=== PATIENT | male | born 1940 | race Caucasian/White ===

== ENCOUNTER → 2016-06-18 | Outpatient (CLI) | payer MEDICARE, BC ==
[~2016-06-18] MED LIST: ALEVE 220MG220 MG PO; ASPIRIN 81M81 MG/TA2 PO; CALCIUM/MAGNESI1 TA8 PO; CIPRO 250MG TA250 MG PO; COZAAR 50MG50 MG/TAB PO; FLAGYL 250250 MG/TAB PO; FLOMAX 0.40.4 MG/CAP PO; MAG-OX 400400 MG/TAB PO; MEDROL 4MG DOSPA4 MG PO; MULTI VITAMINS1 TAB PO; OMEGA-31 SGL PO; PRAVACHOL 40MG40 MG PO; SINGULAIR 110 MG/TAB PO; WELLBUTRIN SR100 M1 PO; ZONEGRAN 100MG100 MG PO; ZYRTEC ALLERGY10 MG PO; [UNRECOGNIZED DRUG - OTHER] PO; [UNRECOGNIZED DRUG - OTHER] PO; [UNRECOGNIZED DRUG - OTHER] PO; [UNRECOGNIZED DRUG - OTHER] PO
== END ==
LOC: MHCPAIN 09:23
DX: G89.29 Other chronic pain (principal); M50.90 Cervical disc disorder, unspecified, unspecified cervical region; M79.2 Neuralgia and neuritis, unspecified
CPT/HCPCS: G0463

== ENCOUNTER → 2016-06-24 | Outpatient (CLI) | payer MEDICARE, BC | LOC: MHCPAIN 07:40 | DX: G89.29 Other chronic pain (principal); M50.90 Cervical disc disorder, unspecified, unspecified cervical region; M79.2 Neuralgia and neuritis, unspecified ==

== ENCOUNTER → 2016-07-01 | Outpatient (CLI) | payer MEDICARE, BC | LOC: MHCPAIN 13:30 | DX: M50.30 Other cervical disc degeneration, unspecified cervical region (principal) ==

== ENCOUNTER → 2016-07-20 | Outpatient (CLI) | payer MEDICARE, BC | LOC: MHCPAIN 09:50 | DX: G89.29 Other chronic pain (principal); M50.90 Cervical disc disorder, unspecified, unspecified cervical region | CPT/HCPCS: G0463 ==

== ENCOUNTER → 2016-08-05 | Outpatient (CLI) | payer MEDICARE, BC | LOC: MHCPAIN 10:02 | DX: M50.30 Other cervical disc degeneration, unspecified cervical region (principal) | CPT/HCPCS: J1100 ==

== ENCOUNTER → 2016-08-09 | Outpatient (CLI) | payer MEDICARE, BC | LOC: MHCPAIN 10:10 | DX: G89.29 Other chronic pain (principal); M46.92 Unspecified inflammatory spondylopathy, cervical region | CPT/HCPCS: G0463 ==

== ENCOUNTER → 2016-08-12 | Outpatient (CLI) | payer MEDICARE, BC | LOC: MHCPAIN 11:05 | DX: M50.30 Other cervical disc degeneration, unspecified cervical region (principal) | CPT/HCPCS: J1100 ==

== ENCOUNTER 2016-08-27 11:47 | Day surgery (SDC) | payer MEDICARE, BC ==
[~2016-08-27] VITALS: Ht 175.3 cm; Wt 136.1 kg
[~2016-08-27 11:47] MED LIST changes: -CALCIUM/MAGNESI1 TA8 PO; -OMEGA-31 SGL PO; -SINGULAIR 110 MG/TAB PO; -WELLBUTRIN SR100 M1 PO; -ZONEGRAN 100MG100 MG PO; -ZYRTEC ALLERGY10 MG PO; -[UNRECOGNIZED DRUG - OTHER] PO; -[UNRECOGNIZED DRUG - OTHER] PO; -[UNRECOGNIZED DRUG - OTHER] PO
[2016-08-27 13:07] VITALS: BP 145/81; PULSE 81; TEMP 97.7
[2016-08-27] MEDS ORDERED: ZYRTEC ALLERGY10 MG PO (13:20)
[2016-08-27] MEDS ORDERED: SINGULAIR 110 MG/TAB PO (13:21)
[2016-08-27] MEDS ORDERED: FLOMAX 0.40.4 MG/CAP PO (13:21)
[2016-08-27 13:50] VITALS: BP 115/70; PULSE 78
[2016-08-27 14:05] VITALS: BP 122/60; PULSE 75
[2016-08-27 14:20] VITALS: BP 128/74; PULSE 78
[2016-08-27 14:35] VITALS: BP 125/67; PULSE 75
[2016-08-27 14:50] VITALS: BP 129/68; PULSE 80
== END 2016-08-27 15:30 | disposition home or self-care (01) ==
LOC: SDCO 11:47
DX: R06.00 Dyspnea, unspecified (principal); R05 Cough; Z87.891 Personal history of nicotine dependence
CPT/HCPCS: J0456; J2704; J2920; J7050; J7120

== ENCOUNTER → 2016-09-10 | Outpatient (CLI) | payer MEDICARE, BC ==
[~2016-09-10] MED LIST changes: +CALCIUM/MAGNESI1 TA8 PO; +OMEGA-31 SGL PO; +SINGULAIR 110 MG/TAB PO; +WELLBUTRIN SR100 M1 PO; +ZONEGRAN 100MG100 MG PO; +ZYRTEC ALLERGY10 MG PO; +[UNRECOGNIZED DRUG - OTHER] PO; +[UNRECOGNIZED DRUG - OTHER] PO; +[UNRECOGNIZED DRUG - OTHER] PO
== END ==
LOC: MHCPAIN 09:44
DX: G89.29 Other chronic pain (principal); M46.92 Unspecified inflammatory spondylopathy, cervical region
CPT/HCPCS: G0463

== ENCOUNTER 2016-12-29 11:20 | Emergency (ER) | payer MEDICARE, OTHER ==
[~2016-12-29] VITALS: Ht 172.7 cm; Wt 121.4 kg
[~2016-12-29 11:20] MED LIST changes: -CALCIUM/MAGNESI1 TA8 PO; -OMEGA-31 SGL PO; -WELLBUTRIN SR100 M1 PO; -ZONEGRAN 100MG100 MG PO; -[UNRECOGNIZED DRUG - OTHER] PO; -[UNRECOGNIZED DRUG - OTHER] PO; -[UNRECOGNIZED DRUG - OTHER] PO
[2016-12-29 11:25] VITALS: TEMP 97.1
[2016-12-29 11:59] LABS: ADJUSTED CALCIUM 9.3 mg/dL (8.4-10.2); ALANINE AMINOTRANSFERASE 22 U/L (21-72); ALBUMIN 3.7 gm/dL (3.5-5.0); ALKALINE PHOSPHATASE 88 U/L (50-136); ANION GAP 13 mmol/L (7-16); BASO # 0.1 (0.0-0.2); BASO % 0.8 % (0.0-2.0); BILIRUBIN,TOTAL 0.7 mg/dL (0.0-1.0); BLOOD UREA NITROGEN 18 mg/dL (9-20); CALCIUM 9.1 mg/dL (8.4-10.2); CARBON DIOXIDE 22 mmol/L (22-30); CHLORIDE 104 mmol/L (98-107); CREATININE, serum 0.74 mg/dL (0.66-1.25); EOS # 0.4 (0.0-0.7); EOS % 5.1 % (0-4.0); GLUCOSE 99 mg/dL (74-106); GRAN # 4.9 (1.4-6.5); GRAN % 65.6 % (42.2-75.2); LIPASE 32 U/L (23-300); LYMPH # 1.7 (1.2-3.4); LYMPH % 22.5 % (20.0-51.0); MEAN CELL VOLUME 88 fl (80.0-100.0); MEAN CORPUSCULAR HGB CONC 33 g/dl (33.0-37.0); MEAN PLATELET VOLUME 9.6 fl (7.4-10.4); MONO # 0.4 (0.1-0.6); MONO % 5.9 % (1.7-9.3); PLATELET COUNT 272 K/mm3 (130-400); POTASSIUM 4.3 mmol/L (3.4-5.0); RED BLOOD COUNT 3.85 M/mm3 (4.20-5.60); REDCELL DISTRIBUTION WIDTH-CV 14.1 % (11.5-14.5); SODIUM 139 mmol/L (137-145); WHITE BLOOD COUNT 7.5 K/mm3 (4.8-10.8)
[2016-12-29 12:02] LABS: HEMOGLOBIN 11.3 g/dl (13.5-18.0); MEAN CORPUSCULAR HEMOGLOBIN 29 pg (27.0-31.0)
[2016-12-29 12:11] LABS: B-TYPE NATRIURETIC PEPTIDE 194 pg/mL (0-125); TROPONIN-I < 0.012 ng/mL (0.000-0.034)
[2016-12-29] MEDS ORDERED: ZONEGRAN 100MG100 MG PO (12:31)
[2016-12-29] MEDS ORDERED: WELLBUTRIN SR100 M1 PO (12:32)
[2016-12-29] MEDS ORDERED: [UNRECOGNIZED DRUG - OTHER] PO (12:38)
[2016-12-29] MEDS ORDERED: CALCIUM/MAGNESI1 TA8 PO (13:08)
[2016-12-29] MEDS ORDERED: OMEGA-31 SGL PO (13:09)
[2016-12-29] MEDS ORDERED: [UNRECOGNIZED DRUG - OTHER] PO (13:10)
[2016-12-29] MEDS ORDERED: [UNRECOGNIZED DRUG - OTHER] PO (13:11)
[2016-12-29 14:45] VITALS: BP 108/56; PULSE 74
== END 2016-12-29 15:02 | disposition home or self-care (01) ==
LOC: COL.ER 11:20
PROVIDERS: Emergency Medicine
DX: R07.9 Chest pain, unspecified (principal); I10 Essential (primary) hypertension; E78.5 Hyperlipidemia, unspecified; Z85.3 Personal history of malignant neoplasm of breast; N40.0 Benign prostatic hyperplasia without lower urinary tract symptoms; Z98.890 Other specified postprocedural states; Z87.891 Personal history of nicotine dependence
CPT/HCPCS: J1885

== ENCOUNTER → 2017-08-19 | Outpatient (CLI) | payer MEDICARE ==
[~2017-08-19] MED LIST changes: +CALCIUM/MAGNESI1 TA8 PO; +OMEGA-31 SGL PO; +WELLBUTRIN SR100 M1 PO; +ZONEGRAN 100MG100 MG PO; +[UNRECOGNIZED DRUG - OTHER] PO; +[UNRECOGNIZED DRUG - OTHER] PO; +[UNRECOGNIZED DRUG - OTHER] PO
== END ==
LOC: COL.LAB 09:41
DX: Z01.89 Encounter for other specified special examinations (principal)

== ENCOUNTER → 2017-08-20 | Outpatient (CLI) | payer MEDICARE | LOC: ZCOL.LAB 09:05 | DX: R05 Cough (principal) ==

== ENCOUNTER → 2018-02-21 | Outpatient (CLI) | payer MEDICARE ==
[~2018-02-21] MED LIST changes: +ASPIRIN E.C. 8181 MG PO; +FERROUS SU325 MG/TAB PO; +FLONASEALLERGY NS; +FOLIC ACID0.4 MG PO; +KLONOPIN 0.5MG0.5 MG PO; +VITAMIN D31000 I1 PO; +VITAMINC500CH PO
== END ==
LOC: COL.LAB 11:51
DX: Z01.812 Encounter for preprocedural laboratory examination (principal)

== ENCOUNTER → 2018-03-17 | Outpatient (REF) ==
[~2018-03-17] MED LIST changes: +ASPI325T6 PO; +CEPHALEXIN500 M1 PO; +CHROMIUM PICOLI1 TA8 PO; +CIPRO 500MG TA500 MG PO; +CO Q-1010 M1 PO; +CORDARONE200 MG/TAB PO; +ELIQUIS 5MG PO; +FOSAMAX 70MG TA70 MG PO; +MASON NATURAL1200 MG PO; +MULTIPLE VITAMI1 CAP PO; +NORCO 325 MG-7.1 TAB PO; +PRAVACHOL 20MG20 MG PO; +ROXICODONE 55 MG/TAB PO; +SENOKOT S 50 MG1 TAB PO
[2018-03-17 14:33] LABS: BASO % 0.4 % (0.0-2.0); EOS # 0.1 (0.0-0.7); EOS % 1.7 % (0-4.0); GRAN # 5.1 (1.4-6.5); GRAN % 73.3 % (42.2-75.2); LYMPH # 1.2 (1.2-3.4); MEAN CELL VOLUME 91 fl (80.0-100.0); MEAN CORPUSCULAR HGB CONC 33 g/dl (33.0-37.0); MEAN PLATELET VOLUME 9.1 fl (7.4-10.4); MONO # 0.5 (0.1-0.6); MONO % 7.2 % (1.7-9.3); PLATELET COUNT 373 K/mm3 (130-400); RED BLOOD COUNT 3.21 M/mm3 (4.20-5.60); REDCELL DISTRIBUTION WIDTH-CV 14.4 % (11.5-14.5)
[2018-03-17 14:37] LABS: HEMATOCRIT 29.3 % (42.0-52.0); HEMOGLOBIN 9.6 g/dl (13.5-18.0); MEAN CORPUSCULAR HEMOGLOBIN 30 pg (27.0-31.0)
[2018-03-17 14:38] LABS: BILIRUBIN,TOTAL 0.4 mg/dL (0.0-1.0); CALCIUM 9.5 mg/dL (8.4-10.2); CREATININE, serum 0.91 mg/dL (0.66-1.25); POTASSIUM 4.2 mmol/L (3.4-5.0)
[2018-03-17 17:54] LABS: COLLECTION METHOD CLEAN CATCH
[2018-03-17 18:11] LABS: MUCOUS Present /lpf; PH 6 (5-8); SQUAMOUS EPITHELIAL 0-2 /hpf; URINE APPEARANCE Clear; URINE BACTERIA None Seen /hpf; URINE BILIRUBIN Negative (NEGATIVE); URINE BLOOD Negative (NEGATIVE); URINE CALCIUM OXALATE CRYSTAL Present /hpf; URINE COLOR Yellow; URINE GLUCOSE Negative (NEGATIVE); URINE KETONE Negative (NEGATIVE); URINE LEUKOCYTE ESTERASE Negative (NEGATIVE); URINE NITRATE Negative (NEGATIVE); URINE PROTEIN(semi-quant) Negative (NEGATIVE); URINE RBC 0-2 /hpf; URINE UROBILINOGEN Negative (NEGATIVE)
[2018-03-21 00:05] LABS: IEPS TP 5.1 g/dL (6.0-7.6)
== END ==
LOC: ZCOL.LAB 14:21
PROVIDERS: Family Medicine
DX: Z01.89 Encounter for other specified special examinations (principal)

== ENCOUNTER → 2018-03-30 | Outpatient (CLI) | payer MEDICARE ==
[~2018-03-30] VITALS: Ht 175.3 cm; Wt 109.1 kg
[2018-03-30] VITALS (10 sets, daily range): BP systolic 113–145; BP diastolic 37–76; PULSE 74–80
[~2018-03-30] MED LIST changes: +LOVENOX 3030 MG/0.3 SQ; +PERCOCET 325 MG1 TAB PO; +TYLENOL 325MG325 MG PO; +ZYRTEC 10MG10 MG PO
== END ==
LOC: COL.RAD 08:35
DX: M89.9 Disorder of bone, unspecified (principal); Z85.3 Personal history of malignant neoplasm of breast
CPT/HCPCS: 32109

== ENCOUNTER 2018-04-05 19:11 | Observation (INO) | payer MEDICARE ==
[~2018-04-05] VITALS: Ht 172.7 cm; Wt 110.2 kg
[~2018-04-05 19:11] MED LIST changes: +LOVENOX 100100 MG/ML SQ; -LOVENOX 3030 MG/0.3 SQ
[2018-04-05 20:44] LABS: BASO # 0.1 (0.0-0.2); BASO % 0.7 % (0.0-2.0); EOS # 0.5 (0.0-0.7); EOS % 7.2 % (0-4.0); GRAN # 4.6 (1.4-6.5); GRAN % 66.2 % (42.2-75.2); HEMOGLOBIN 10.1 g/dl (13.5-18.0); LYMPH # 1.2 (1.2-3.4); LYMPH % 17.7 % (20.0-51.0); MEAN CELL VOLUME 93 fl (80.0-100.0); MEAN CORPUSCULAR HEMOGLOBIN 30 pg (27.0-31.0); MEAN CORPUSCULAR HGB CONC 33 g/dl (33.0-37.0); MEAN PLATELET VOLUME 9.1 fl (7.4-10.4); MONO # 0.5 (0.1-0.6); MONO % 7.5 % (1.7-9.3); PLATELET COUNT 312 K/mm3 (130-400); RED BLOOD COUNT 3.33 M/mm3 (4.20-5.60); REDCELL DISTRIBUTION WIDTH-CV 15.2 % (11.5-14.5)
[2018-04-05 20:46] LABS: HEMATOCRIT 31.1 % (42.0-52.0)
[2018-04-05 20:54] LABS: ALBUMIN 2.9 gm/dL (3.5-5.0); BILIRUBIN,TOTAL 0.4 mg/dL (0.0-1.0); CALCIUM 12.4 mg/dL (8.4-10.2); CREATININE, serum 0.78 mg/dL (0.66-1.25); POTASSIUM 3.6 mmol/L (3.4-5.0); TOTAL PROTEIN 5.8 gm/dL (6.4-8.2)
[2018-04-05 21:01] LABS: INR 1.2 (0.8-3.0); PROTHROMBIN TIME 13.9 SECONDS (9.7-12.8)
[2018-04-05 21:24] LABS: THYROID STIMULATING HORMONE 2.41 uIU/mL (0.465-4.680)
[2018-04-05 23:26] LABS: COLLECTION METHOD CLEAN CATCH
[2018-04-05 23:33] LABS: PH 6 (5-8); SQUAMOUS EPITHELIAL 0-2 /hpf; URINE APPEARANCE Clear; URINE BACTERIA None Seen /hpf; URINE BILIRUBIN Negative (NEGATIVE); URINE BLOOD Negative (NEGATIVE); URINE COLOR Straw; URINE GLUCOSE Negative (NEGATIVE); URINE KETONE Negative (NEGATIVE); URINE LEUKOCYTE ESTERASE Negative (NEGATIVE); URINE NITRATE Negative (NEGATIVE); URINE PROTEIN(semi-quant) Negative (NEGATIVE); URINE RBC 0-2 /hpf; URINE UROBILINOGEN Negative (NEGATIVE)
[2018-04-06 00:28] VITALS: BP 145/60; PULSE 80; TEMP 99.2
[2018-04-06] MEDS ORDERED: DULCOLAX S10 MG/SUPP RC (01:33)
[2018-04-06] MEDS ORDERED: LASIX 20MG TABL20 MG PO (01:40)
[2018-04-06] MEDS ORDERED: SENNA-LAX8.6 MG PO (01:42)
[2018-04-06 02:05] LABS: CALCIUM 11.8 mg/dL (8.4-10.2); CREATININE, serum 0.81 mg/dL (0.66-1.25); MAGNESIUM 1.6 mg/dL (1.6-2.3); PHOSPHOROUS 3.3 mg/dL (2.5-4.5); POTASSIUM 3.3 mmol/L (3.4-5.0)
[2018-04-06] MEDS ORDERED: CORDARONE200 MG/TAB PO (02:05)
[2018-04-06 03:48] VITALS: BP 103/41; PULSE 75; TEMP 98.3
[2018-04-06 06:31] LABS: BASO % 0.3 % (0.0-2.0); EOS # 0.4 (0.0-0.7); EOS % 5.9 % (0-4.0); GRAN # 4.2 (1.4-6.5); GRAN % 67.5 % (42.2-75.2); LYMPH # 1.1 (1.2-3.4); LYMPH % 17.7 % (20.0-51.0); MEAN CELL VOLUME 93 fl (80.0-100.0); MEAN CORPUSCULAR HEMOGLOBIN 30 pg (27.0-31.0); MEAN CORPUSCULAR HGB CONC 33 g/dl (33.0-37.0); MEAN PLATELET VOLUME 10.3 fl (7.4-10.4); MONO # 0.5 (0.1-0.6); MONO % 7.8 % (1.7-9.3); PLATELET COUNT 342 K/mm3 (130-400); REDCELL DISTRIBUTION WIDTH-CV 15.2 % (11.5-14.5)
[2018-04-06 06:40] LABS: HEMATOCRIT 30.7 % (42.0-52.0)
[2018-04-06 06:50] LABS: CALCIUM 11.6 mg/dL (8.4-10.2); CREATININE, serum 0.79 mg/dL (0.66-1.25); POTASSIUM 3.4 mmol/L (3.4-5.0)
[2018-04-06 08:17] VITALS: BP 113/51; PULSE 78; TEMP 97.8
[2018-04-06 12:16] VITALS: BP 125/43; PULSE 70; TEMP 97.9
[2018-04-06 13:18] LABS: PTH,INTACT 8.9 pg/mL (6.6-88.9)
[2018-04-06 16:25] VITALS: BP 107/44; PULSE 71; TEMP 97.7
[2018-04-06 20:06] VITALS: BP 102/41; PULSE 84; TEMP 98.3
[2018-04-07 00:31] VITALS: BP 116/36; PULSE 60; TEMP 97.8
[2018-04-07 04:45] VITALS: BP 96/40; PULSE 70; TEMP 98.2
[2018-04-07 06:22] LABS: BASO % 0.6 % (0.0-2.0); EOS # 0.4 (0.0-0.7); EOS % 5.5 % (0-4.0); GRAN # 4.4 (1.4-6.5); LYMPH # 1.2 (1.2-3.4); MEAN CELL VOLUME 93 fl (80.0-100.0); MEAN CORPUSCULAR HGB CONC 32 g/dl (33.0-37.0); MEAN PLATELET VOLUME 9.7 fl (7.4-10.4); MONO # 0.5 (0.1-0.6); MONO % 7.3 % (1.7-9.3); PLATELET COUNT 306 K/mm3 (130-400); RED BLOOD COUNT 3.17 M/mm3 (4.20-5.60); REDCELL DISTRIBUTION WIDTH-CV 15.1 % (11.5-14.5)
[2018-04-07 06:26] LABS: HEMATOCRIT 29.5 % (42.0-52.0); HEMOGLOBIN 9.5 g/dl (13.5-18.0); MEAN CORPUSCULAR HEMOGLOBIN 30 pg (27.0-31.0)
[2018-04-07 06:36] LABS: CALCIUM 9.7 mg/dL (8.4-10.2); CREATININE, serum 0.7 mg/dL (0.66-1.25); POTASSIUM 3.4 mmol/L (3.4-5.0)
[2018-04-07 07:39] VITALS: BP 121/53; PULSE 68; TEMP 98
[2018-04-07 11:18] VITALS: BP 108/51; PULSE 76; TEMP 97.8
== END 2018-04-07 15:30 ==
LOC: COL.ER 19:11 → MEDICAL 22:10
PROVIDERS: Emergency Medicine; Hospitalist; Nurse Practitioner Family
DX: E83.52 Hypercalcemia (principal); M79.662 Pain in left lower leg; M79.661 Pain in right lower leg; R60.0 Localized edema; E87.6 Hypokalemia; E83.42 Hypomagnesemia; B37.9 Candidiasis, unspecified; I10 Essential (primary) hypertension; E78.5 Hyperlipidemia, unspecified; I48.0 Paroxysmal atrial fibrillation; I48.92 Unspecified atrial flutter; Z79.01 Long term (current) use of anticoagulants; I42.9 Cardiomyopathy, unspecified; I25.10 Atherosclerotic heart disease of native coronary artery without angina pectoris; G47.33 Obstructive sleep apnea (adult) (pediatric); Z86.711 Personal history of pulmonary embolism; J84.10 Pulmonary fibrosis, unspecified; Z85.3 Personal history of malignant neoplasm of breast; E66.01 Morbid (severe) obesity due to excess calories; D35.00 Benign neoplasm of unspecified adrenal gland; N40.0 Benign prostatic hyperplasia without lower urinary tract symptoms; R53.1 Weakness; R53.81 Other malaise; M79.622 Pain in left upper arm; M84.422D Pathological fracture, left humerus, subsequent encounter for fracture with routine healing; Z79.899 Other long term (current) drug therapy; Z87.891 Personal history of nicotine dependence
CPT/HCPCS: G0378; G8978-GP; G8979-GP; G8987-GO; G8988-GO; J0630; J1940; J2430; J3475; J7030

== ENCOUNTER → 2018-04-13 | Outpatient (CLI) | payer MEDICARE ==
[~2018-04-13] VITALS: Ht 172.7 cm; Wt 109.1 kg
[~2018-04-13] MED LIST changes: +DULCOLAX S10 MG/SUPP RC; +LASIX 20MG TABL20 MG PO; +SENNA-LAX8.6 MG PO
[2018-04-13 13:15] VITALS: BP 95/58; PULSE 104
[2018-04-13 15:04] VITALS: BP 11/63; PULSE 96
[2018-04-13 15:22] VITALS: BP 128/67; PULSE 93
== END ==
LOC: COL.RAD 12:51
DX: M79.9 Soft tissue disorder, unspecified (principal); R93.7 Abnormal findings on diagnostic imaging of other parts of musculoskeletal system; R93.89 Abnormal findings on diagnostic imaging of other specified body structures; Z85.3 Personal history of malignant neoplasm of breast

== ENCOUNTER 2018-04-25 08:17 | Day surgery (SDC) | payer MEDICARE ==
[~2018-04-25] VITALS: Ht 172.7 cm; Wt 110.5 kg
[2018-04-25 09:16] VITALS: BP 125/58; PULSE 82; TEMP 97.4
[2018-04-25] MEDS ORDERED: ZYLOPRIM 300MG300 MG PO (09:54)
[2018-04-25] MEDS ORDERED: CORDARONE200 MG/TAB PO (09:55)
[2018-04-25] MEDS ORDERED: ENSURE 237 ML237 ML PO (09:56)
[2018-04-25] MEDS ORDERED: FENTANYL 12MCG TD (09:58)
[2018-04-25] MEDS ORDERED: LASIX 20MG TABL20 MG PO ×2 (09:59→10:01)
[2018-04-25] MEDS ORDERED: FOSAMAX 70MG TA70 MG PO (09:59)
[2018-04-25] MEDS ORDERED: PRAVACHOL 20MG20 MG PO (10:01)
[2018-04-25] MEDS ORDERED: PREDNISONE20 MG PO (10:03)
[2018-04-25] MEDS ORDERED: FLOMAX 0.40.4 MG/CAP PO (10:03)
[2018-04-25] MEDS ORDERED: ZYRTEC 10MG10 MG PO (10:04)
[2018-04-25] MEDS ORDERED: ELIQUIS 5MG PO (10:05)
[2018-04-25] MEDS ORDERED: NYSTATIN CREAM15 GM TP (10:07)
[2018-04-25] MEDS ORDERED: DIAPERRASHOINT TOP (10:08)
[2018-04-25] MEDS ORDERED: TYLENOL SU650 MG/SUP RC (10:09)
[2018-04-25] MEDS ORDERED: DULCOLAX S10 MG/SUPP RC (10:09)
[2018-04-25] MEDS ORDERED: IMODIUM 2MG CAPS2 MG PO (10:10)
[2018-04-25] MEDS ORDERED: GOOD NEIGH1200 MG/15 PO (10:11)
[2018-04-25] MEDS ORDERED: ALMACONE 360 M360 ML PO (10:12)
[2018-04-25] MEDS ORDERED: PERCOCET 325 MG1 TAB PO ×2 (10:12→11:58)
[2018-04-25] MEDS ORDERED: SENOKOT8.6 MG PO (10:13)
[2018-04-25] MEDS ORDERED: SENOKOT S 50 MG1 TAB PO (10:14)
[2018-04-25] MEDS ORDERED: TYLENOL 325MG325 MG PO (10:16)
[2018-04-25] MEDS ORDERED: FERROUSAL325 MG PO (10:18)
[2018-04-25] MEDS ORDERED: FLONASEALLERGY NS (10:19)
[2018-04-25 11:42] VITALS: BP 135/60; PULSE 85
[2018-04-25 11:57] VITALS: BP 138/61; PULSE 85
[2018-04-25 12:12] VITALS: BP 118/55; PULSE 81
[2018-04-25 12:27] VITALS: BP 134/54; PULSE 87
== END 2018-04-25 12:49 | disposition home or self-care (01) ==
LOC: SDCO 08:17
DX: C85.90 Non-Hodgkin lymphoma, unspecified, unspecified site (principal); Z09 Encounter for follow-up examination after completed treatment for conditions other than malignant neoplasm; Z95.818 Presence of other cardiac implants and grafts; I48.2 Chronic atrial fibrillation; Z79.01 Long term (current) use of anticoagulants; Z86.711 Personal history of pulmonary embolism; R60.9 Edema, unspecified; I25.10 Atherosclerotic heart disease of native coronary artery without angina pectoris; I11.0 Hypertensive heart disease with heart failure; I50.30 Unspecified diastolic (congestive) heart failure; G47.30 Sleep apnea, unspecified; E78.5 Hyperlipidemia, unspecified; E83.52 Hypercalcemia; E83.42 Hypomagnesemia; D64.9 Anemia, unspecified; Z79.899 Other long term (current) drug therapy; C85.10 Unspecified B-cell lymphoma, unspecified site; E66.01 Morbid (severe) obesity due to excess calories; Z85.3 Personal history of malignant neoplasm of breast; N40.1 Benign prostatic hyperplasia with lower urinary tract symptoms
CPT/HCPCS: C1788; J0690; J1644; J2405; J2704; J3010; J7120

== ENCOUNTER → 2018-04-28 | Outpatient (CLI) | payer MEDICARE ==
[~2018-04-28] MED LIST changes: +ALMACONE 360 M360 ML PO; +DIAPERRASHOINT TOP; +ENSURE 237 ML237 ML PO; +FENTANYL 12MCG TD; +FERROUSAL325 MG PO; +GOOD NEIGH1200 MG/15 PO; +IMODIUM 2MG CAPS2 MG PO; +NYSTATIN CREAM15 GM TP; +PREDNISONE20 MG PO; +SENOKOT8.6 MG PO; +TYLENOL SU650 MG/SUP RC; +ZYLOPRIM 300MG300 MG PO
[2018-04-28 21:45] LABS: ALBUMIN 2.6 gm/dL (3.5-5.0); BILIRUBIN,TOTAL 0.3 mg/dL (0.0-1.0); CALCIUM 10.3 mg/dL (8.4-10.2); CREATININE, serum 0.72 mg/dL (0.66-1.25); MAGNESIUM 1.8 mg/dL (1.6-2.3); URIC ACID 7.6 mg/dL (3.5-8.5)
== END ==
LOC: ZCOL.LAB 19:33
PROVIDERS: Family Medicine
DX: Z01.89 Encounter for other specified special examinations (principal)

== ENCOUNTER → 2018-04-28 | Outpatient (CLI) | payer MEDICARE | LOC: ZCOL.LAB 18:37 | DX: Z01.89 Encounter for other specified special examinations (principal) ==

== ENCOUNTER → 2018-04-29 | Outpatient (CLI) | payer MEDICARE ==
[2018-04-29 11:55] LABS: HEMOGLOBIN 12.1 g/dl (13.5-18.0); MEAN CELL VOLUME 94 fl (80.0-100.0); MEAN CORPUSCULAR HEMOGLOBIN 31 pg (27.0-31.0); MEAN CORPUSCULAR HGB CONC 33 g/dl (33.0-37.0); MEAN PLATELET VOLUME 10.2 fl (7.4-10.4); PLATELET COUNT 178 K/mm3 (130-400); RED BLOOD COUNT 3.94 M/mm3 (4.20-5.60); REDCELL DISTRIBUTION WIDTH-CV 16.5 % (11.5-14.5)
[2018-04-29 12:05] LABS: BAND 25 % (0-10); EOSINOPHIL 1 % (0-4); LYMPHOCYTE 3 % (20.0-51.0); NEUTROPHILS 70 % (42.0-75.2)
[2018-04-29 12:07] LABS: HYPOCHROMIA 1+; PLATELET ESTIMATE NORMAL (NORMAL)
[2018-04-29 12:08] LABS: STOMATOCYTE 1+
== END ==
LOC: ZCOL.LAB 11:24
PROVIDERS: Internal Medicine
DX: C83.39 Diffuse large B-cell lymphoma, extranodal and solid organ sites (principal)

== ENCOUNTER → 2018-05-02 | Outpatient (CLI) | payer MEDICARE | LOC: COL.VAS 09:58 | DX: Z01.818 Encounter for other preprocedural examination (principal); C83.39 Diffuse large B-cell lymphoma, extranodal and solid organ sites; I34.8 Other nonrheumatic mitral valve disorders ==

== ENCOUNTER 2018-05-09 20:22 | Inpatient (IN) | payer MEDICARE, OTHER ==
[~2018-05-09] VITALS: Ht 172.7 cm; Wt 97.8 kg
[2018-05-09 21:12] LABS: HEMATOCRIT 29.1 % (42.0-52.0); HEMOGLOBIN 9.6 g/dl (13.5-18.0); MEAN CELL VOLUME 93 fl (80.0-100.0); MEAN CORPUSCULAR HEMOGLOBIN 31 pg (27.0-31.0); MEAN CORPUSCULAR HGB CONC 33 g/dl (33.0-37.0); MEAN PLATELET VOLUME 9.7 fl (7.4-10.4); PLATELET COUNT 194 K/mm3 (130-400); RED BLOOD COUNT 3.14 M/mm3 (4.20-5.60); REDCELL DISTRIBUTION WIDTH-CV 16.7 % (11.5-14.5)
[2018-05-09 21:26] LABS: ALANINE AMINOTRANSFERASE 22 U/L (21-72); ALBUMIN 3.1 gm/dL (3.5-5.0); ALKALINE PHOSPHATASE 82 U/L (50-136); ANION GAP 4 mmol/L (7-16); AST,SGOT 25 U/L (15-37); BILIRUBIN,TOTAL 0.2 mg/dL (0.0-1.0); BLOOD UREA NITROGEN 15 mg/dL (9-20); CALCIUM 8.2 mg/dL (8.4-10.2); CARBON DIOXIDE 30 mmol/L (22-30); CHLORIDE 97 mmol/L (98-107); CREATININE, serum 0.69 mg/dL (0.66-1.25); GLUCOSE 111 mg/dL (74-106); SODIUM 131 mmol/L (137-145)
[2018-05-09 21:35] LABS: TROPONIN-I < 0.012 ng/mL (0.000-0.034)
[2018-05-09 21:40] LABS: C-REACTIVE PROTEIN 17.2 mg/dL (0.0-0.9)
[2018-05-09 21:46] LABS: ANISOCYTOSIS 1+; BAND 12 % (0-10); LYMPHOCYTE 7 % (20.0-51.0); NEUTROPHILS 74 % (42.0-75.2); PLATELET ESTIMATE NORMAL (NORMAL)
[2018-05-09 22:50] LABS: COLLECTION METHOD CLEAN CATCH
[2018-05-09 22:56] LABS: PH 7 (5-8); SQUAMOUS EPITHELIAL 0-2 /hpf; URINE APPEARANCE Clear; URINE BACTERIA None Seen /hpf; URINE BILIRUBIN Negative (NEGATIVE); URINE BLOOD Negative (NEGATIVE); URINE COLOR Yellow; URINE GLUCOSE Negative (NEGATIVE); URINE KETONE Negative (NEGATIVE); URINE LEUKOCYTE ESTERASE Negative (NEGATIVE); URINE NITRATE Negative (NEGATIVE); URINE PROTEIN(semi-quant) Negative (NEGATIVE); URINE RBC 0-2 /hpf; URINE UROBILINOGEN Negative (NEGATIVE)
[2018-05-09] MEDS ORDERED: K-DUR20 MEQ PO (23:35)
[2018-05-09] MEDS ORDERED: ALMACONE 360 M360 ML PO (23:35)
[2018-05-09] MEDS ORDERED: COMPAZINE 110 MG/TAB PO (23:36)
[2018-05-09] MEDS ORDERED: SINGULAIR 110 MG/TAB PO (23:36)
--- NOTE | 2018-05-09 23:50 | NUR ---
Patient admitted from ER via ER cart and max 2 assist to transfer to hospital bed in room 324. Patient alert and oriented x 4. States since he's been diagnosed with lymphedema to LUE and BLE he's been non wt bearing and resides at [facility]. here and very attentive and to stay the night. Patient completed 3 treatments of chemotherapy last dose 04/28/18. See admission assessment form. At 0130 orders received that patient may have percocet as he takes at [facility] and percocet 10 1 tab given for BLE and left arm pain. Patient has brace to LUE and stockenette/jass that's CDI for lympedema and fractured humerous. Urinal placed for patient and voids clear yellow urine about 15mls. states he voided quite a bit in ER earlier. Nurse adorned 2 gloves to handle urinal and empty urine. Report received from Sarah DIAMOND from ER prior to admit. Vancomycin reviewed and given IV.
[2018-05-10 00:28] VITALS: BP 111/61; PULSE 99; TEMP 99.2
--- NOTE | 2018-05-10 02:30 | NUR ---
Patient rests in bed with eyes closed. Respirations with ease.
[2018-05-10] MEDS ORDERED: FOSAMAX 70MG TA70 MG PO ×2 (02:42→02:43)
[2018-05-10] MEDS ORDERED: ZOVIRAX400 MG PO (02:56)
[2018-05-10] MEDS ORDERED: PERCOCET 325 MG1 TAB PO (03:04)
[2018-05-10 03:34] VITALS: BP 98/55; PULSE 76; TEMP 98.9
--- NOTE | 2018-05-10 05:29 | NUR ---
PATIENT AWAKENED FOR MED. DENIES PAIN OR NEEDS.
[2018-05-10 05:46] LABS: MEAN CELL VOLUME 94 fl (80.0-100.0); MEAN CORPUSCULAR HGB CONC 33 g/dl (33.0-37.0); MEAN PLATELET VOLUME 9.5 fl (7.4-10.4); PLATELET COUNT 196 K/mm3 (130-400); RED BLOOD COUNT 2.91 M/mm3 (4.20-5.60); REDCELL DISTRIBUTION WIDTH-CV 16.7 % (11.5-14.5)
[2018-05-10 05:59] LABS: HEMATOCRIT 27.3 % (42.0-52.0); MEAN CORPUSCULAR HEMOGLOBIN 31 pg (27.0-31.0)
[2018-05-10 06:02] LABS: CALCIUM 7.8 mg/dL (8.4-10.2); CREATININE, serum 0.63 mg/dL (0.66-1.25); MAGNESIUM 1.8 mg/dL (1.6-2.3); POTASSIUM 3.9 mmol/L (3.4-5.0)
[2018-05-10 06:49] LABS: BAND 20 % (0-10); EOSINOPHIL 6 % (0-4); LYMPHOCYTE 12 % (20.0-51.0); NEUTROPHILS 51 % (42.0-75.2); PLATELET ESTIMATE NORMAL (NORMAL)
[2018-05-10 06:50] LABS: ANISOCYTOSIS 1+; HYPOCHROMIA 1+; STOMATOCYTE 1+
[2018-05-10 07:25] VITALS: BP 116/61; PULSE 86; TEMP 99
--- NOTE | 2018-05-10 07:29 | NUR ---
REPORT FROM DESMOND DIAMOND.
--- NOTE | 2018-05-10 08:38 | NUR ---
PT SLEEPING IN BED. AT BEDSIDE. PT USING URINAL PRN. NEW ORDERS RECIEVED FOR THERAPT TO WORK WITH PATIENT.
[2018-05-10 11:28] VITALS: BP 106/59; PULSE 81; TEMP 99.9
--- NOTE | 2018-05-10 11:58 | NUR ---
LAZ met with the patient and patient's , Ratna, to discuss discharge plan. The patient has been residing at [facility] for SNF since 03/14. The patient's reports that she would like for the patient to return back there upon discharge. Patient choice form signed by the patient's and she was provided a copy. LAZ to contact and fax updates to Shanta at [facility] and continue to follow.
[2018-05-10 16:22] VITALS: BP 103/59; PULSE 86; TEMP 100.7
--- NOTE | 2018-05-10 18:32 | NUR ---
PATIENT TRANSFERED INTO ROOM 317 FROM SURGICAL UNIT.
--- NOTE | 2018-05-10 20:05 | NUR ---
Shift assessment complete. Pt resting in bed, awake, a&o, cooperative c cares. 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 Pt denies any other c/o at this time. INT patent. PAC noted to R upper chest, not accessed, still healing, edges well approx c no s/s complication. Tele in place. Pt denies further needs. Call light in reach, will monitor.
[2018-05-10 21:55] VITALS: BP 131/57; PULSE 96; TEMP 100.5; TEMP 99
[2018-05-10 22:48] LABS: MYCOPLASMA IGM ANTIBODIES 0.08 (0.00-0.90)
[2018-05-11] VITALS (7 sets, daily range): BP systolic 95–130; BP diastolic 52–66; PULSE 71–96; TEMP 97.3–101.1
[2018-05-11 07:59] LABS: MEAN CELL VOLUME 94 fl (80.0-100.0); MEAN CORPUSCULAR HGB CONC 33 g/dl (33.0-37.0); MEAN PLATELET VOLUME 9.5 fl (7.4-10.4); PLATELET COUNT 233 K/mm3 (130-400); RED BLOOD COUNT 3.09 M/mm3 (4.20-5.60); REDCELL DISTRIBUTION WIDTH-CV 16.7 % (11.5-14.5)
[2018-05-11 08:01] LABS: HEMATOCRIT 28.9 % (42.0-52.0); HEMOGLOBIN 9.6 g/dl (13.5-18.0); MEAN CORPUSCULAR HEMOGLOBIN 31 pg (27.0-31.0)
[2018-05-11 08:25] LABS: CALCIUM 7.8 mg/dL (8.4-10.2); CREATININE, serum 0.59 mg/dL (0.66-1.25); POTASSIUM 3.5 mmol/L (3.4-5.0)
[2018-05-11 08:36] LABS: BAND 17 % (0-10); EOSINOPHIL 2 % (0-4); LYMPHOCYTE 9 % (20.0-51.0); METAMYELOCYTE 1 % (0-0); NEUTROPHILS 61 % (42.0-75.2)
[2018-05-11 08:39] LABS: PLATELET ESTIMATE NORMAL (NORMAL)
--- NOTE | 2018-05-11 10:30 | NUR ---
Pt assessment complete. Pt is sleeping upon entry, but arouses to voice. He reports pain to bilateral legs and LUE 5/10, refuses pain meds at this time. He reports chronic N/T to bilateral toes and R fingers. He denies N/V. LUE in brace. No needs at this time. Call light within reach.
--- NOTE | 2018-05-11 13:26 | NUR ---
SW faxed update to [facility].
--- NOTE | 2018-05-11 18:46 | NUR ---
Pt report given to LOBO Alexander. Pt had uneventful day. He had intermittent pain, PRN pain medications administered. Incontinent cares provided through the day. VSS. Pt denies needs at this time. Call light within reach. Will continue to monitor.
--- NOTE | 2018-05-11 19:37 | NUR ---
Shift assessment complete. Pt resting in bed, awake, a&o, cooperative c cares. Pt report continued ch pain to legs et back, states "not so bad right now"; will give PRN pain med c HS meds per req. Pt denies any other c/o. INT patent. Tele in place. Pt denies needs at this time. Call light in reach, bed alarm on. Will monitor.
[2018-05-12] VITALS (13 sets, daily range): BP systolic 90–119; BP diastolic 50–66; PULSE 73–88; TEMP 97.6–102.2
[2018-05-12 06:00] LABS: MEAN CELL VOLUME 93 fl (80.0-100.0); MEAN CORPUSCULAR HGB CONC 33 g/dl (33.0-37.0); MEAN PLATELET VOLUME 9.3 fl (7.4-10.4); PLATELET COUNT 260 K/mm3 (130-400); RED BLOOD COUNT 3.05 M/mm3 (4.20-5.60); REDCELL DISTRIBUTION WIDTH-CV 16.5 % (11.5-14.5)
[2018-05-12 06:07] LABS: HEMATOCRIT 28.4 % (42.0-52.0); HEMOGLOBIN 9.3 g/dl (13.5-18.0); MEAN CORPUSCULAR HEMOGLOBIN 30 pg (27.0-31.0)
[2018-05-12 06:08] LABS: CALCIUM 7.7 mg/dL (8.4-10.2); CREATININE, serum 0.56 mg/dL (0.66-1.25); MAGNESIUM 1.8 mg/dL (1.6-2.3); POTASSIUM 3.6 mmol/L (3.4-5.0)
[2018-05-12 07:25] LABS: BAND 10 % (0-10); EOSINOPHIL 3 % (0-4); LYMPHOCYTE 16 % (20.0-51.0); METAMYELOCYTE 1 % (0-0); NEUTROPHILS 64 % (42.0-75.2)
[2018-05-12 07:27] LABS: PLATELET ESTIMATE NORMAL (NORMAL)
[2018-05-12 07:28] LABS: ANISOCYTOSIS 1+
[2018-05-12 07:29] LABS: MICROCYTOSIS 1+
--- NOTE | 2018-05-12 08:30 | NUR ---
Fentanyl patch removed from right posterior shoulder and placed to left posterior shoulder blade on 05/12/2018.
--- NOTE | 2018-05-12 11:55 | NUR ---
Pt left for DARIEN at this time.
--- NOTE | 2018-05-12 12:31 | NUR ---
AM assessment completed. PT continues to have deminished lungs; CT completed at 0930 in house and DARIEN completed at 1200 in house. PT has patent Rt wrist IV in use with no complications. PT continues to have humerous pain and difficulty AMB. No acute fever occurences during VS checks. AMB changed and unable to complete as of now d/t scheduled procedures. Pending administration. VS overall stable; lung unclear with audible wheezing and deminished bases. PT currently off the floor for procedure. Will continue to monitor for changes and orders. CDA
--- NOTE | 2018-05-12 13:29 | NUR ---
PT returned from DARIEN without reported complications. PT able to pivot transfer with 2 assist and gaitbelt. PT denies pain or acute concerns at time of return. Initiated IV ABX at 1300 to RT wrist IV. Post-procedure VS initiated. No further complaints or concerns at conclusion of PT visit; Will continue to monitor. CDA
--- NOTE | 2018-05-12 18:50 | NUR ---
PT denies further c/o pain or discomfort. PT completed orders and procedures without complications. PT able to feed independently and requested assistance for toileting needs. IV site to RT wrist continues to be patent. PT last checked on at shift change with on further complaints or concerns. CDA
--- NOTE | 2018-05-12 20:13 | NUR ---
PT SLEEPING WITH NO NOTED RESP DISTRESS ON ARRIVAL. SAT 94% ON ROOMAIR, HR 82, RR 16.
--- NOTE | 2018-05-12 21:46 | NUR ---
Pt in bed watching TV, shift assessments complete, left Pt call light in reach, bed in lowest position.
[2018-05-13] VITALS (7 sets, daily range): BP systolic 97–118; BP diastolic 51–63; PULSE 74–88; TEMP 98.3–100.7
--- NOTE | 2018-05-13 05:37 | NUR ---
Pt slept fairly well during the night, for most of the night he had no C/O pain, he requested pain medication only once during the night. Vs have been stable.
[2018-05-13 07:47] LABS: MEAN CELL VOLUME 94 fl (80.0-100.0); MEAN CORPUSCULAR HGB CONC 32 g/dl (33.0-37.0); MEAN PLATELET VOLUME 9.3 fl (7.4-10.4); PLATELET COUNT 282 K/mm3 (130-400); RED BLOOD COUNT 2.97 M/mm3 (4.20-5.60); REDCELL DISTRIBUTION WIDTH-CV 16.7 % (11.5-14.5)
[2018-05-13 07:50] LABS: MEAN CORPUSCULAR HEMOGLOBIN 30 pg (27.0-31.0)
[2018-05-13 07:58] LABS: CALCIUM 7.7 mg/dL (8.4-10.2); CREATININE, serum 0.54 mg/dL (0.66-1.25); POTASSIUM 3.7 mmol/L (3.4-5.0)
--- NOTE | 2018-05-13 08:51 | NUR ---
Morning assessment note completed. PT denies pain during assessment; A&Ox3, lung diminished to bases with RT sided wheezes, BS audible x4, RT wrist 20G IV patent to flush, and no S/S of complications. PT continues to have 3 stage two pressure ulcers; 2 on right buttock area and 1 on left buttock area; clean and dry on assessment. PT able to take all medications without difficulty. PT discussed and educated on the importance of continued repositioning. Will continue to monitor. CDA
--- NOTE | 2018-05-13 16:30 | NUR ---
PT reported pain to bilateral LE and low back; administered pain medication as ordered with effective results. PT had acute changes reported to Dr. Romero of a fever of 100.7 oral; administered PRN Tylenol 650mg without complications. PT resting well with no further acute concerns; New medications initiated for bilateral LE neuropathy; administered first dose of Gabapentin 100mg with no adverse effects. Will continue to monitor and administer medication as ordered. CDA
--- NOTE | 2018-05-13 16:45 | NUR ---
Sputum sample completed and sent to lab. CDA
--- NOTE | 2018-05-13 20:30 | NUR ---
Initial shift assessment done- states has pain 4/10 to left arm, bilateral legs-will give Percocet as ordered. Left arm wrapped,elevated. Tele on. Using urinal as needed.
[2018-05-14] VITALS (7 sets, daily range): BP systolic 95–117; BP diastolic 51–74; PULSE 61–94; TEMP 97.3–102.2
--- NOTE | 2018-05-14 06:00 | NUR ---
Did sleep well last night- VSS, did have slight temp at 99.6,, medicated with Percocet twice during the night for arm/knee/and leg pain /10
[2018-05-14 07:09] LABS: HEMATOCRIT 30.1 % (42.0-52.0); MEAN CELL VOLUME 92 fl (80.0-100.0); MEAN CORPUSCULAR HEMOGLOBIN 30 pg (27.0-31.0); MEAN CORPUSCULAR HGB CONC 33 g/dl (33.0-37.0); MEAN PLATELET VOLUME 9.4 fl (7.4-10.4); PLATELET COUNT 322 K/mm3 (130-400); RED BLOOD COUNT 3.29 M/mm3 (4.20-5.60); REDCELL DISTRIBUTION WIDTH-CV 16.4 % (11.5-14.5)
[2018-05-14 07:14] LABS: CREATININE, serum 0.52 mg/dL (0.66-1.25)
--- NOTE | 2018-05-14 10:46 | NUR ---
Pt resting in bed with call light within reach; assessment complete and charted. INT flushed to right wrist. Pt unsure if he can use the port for anything other than chemo. Will continue to monitor.
--- NOTE | 2018-05-14 17:32 | NUR ---
Pt had uneventful day. Resting in bed with call light within reach. Clarified with Dr. Box that it is fine to use his port; INT discontinued as it was out of date. Port accessed using sterile technique; pt tolerated procedure well and blood return was noted. Denies further needs at this time; will continue to monitor.
--- NOTE | 2018-05-14 18:59 | NUR ---
Pt resting in bed. Report given to LOBO Alexander.
--- NOTE | 2018-05-14 20:22 | NUR ---
Shift assessment complete. Pt resting in bed, awake, a&o, cooperative c cares. 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 Pt denies other c/o. Portacath accessed to R chest, patent, good blood return. Pt denies further needs at this time. Call light in reach, bed alarm on. Will continue to monitor.
[2018-05-15] VITALS (7 sets, daily range): BP systolic 88–115; BP diastolic 38–62; PULSE 80–88; TEMP 98.4–9802
[2018-05-15 05:58] LABS: MEAN CELL VOLUME 94 fl (80.0-100.0); MEAN CORPUSCULAR HGB CONC 33 g/dl (33.0-37.0); PLATELET COUNT 336 K/mm3 (130-400); RED BLOOD COUNT 3.13 M/mm3 (4.20-5.60); REDCELL DISTRIBUTION WIDTH-CV 16.8 % (11.5-14.5)
[2018-05-15 06:09] LABS: CALCIUM 8.2 mg/dL (8.4-10.2); CREATININE, serum 0.5 mg/dL (0.66-1.25); POTASSIUM 4.1 mmol/L (3.4-5.0)
[2018-05-15 06:35] LABS: HEMATOCRIT 29.4 % (42.0-52.0); HEMOGLOBIN 9.6 g/dl (13.5-18.0); MEAN CORPUSCULAR HEMOGLOBIN 31 pg (27.0-31.0)
[2018-05-15 07:33] LABS: BAND 6 % (0-10); LYMPHOCYTE 11 % (20.0-51.0); METAMYELOCYTE 1 % (0-0); MYELOCYTE 1 % (0-0); NEUTROPHILS 74 % (42.0-75.2); PLATELET ESTIMATE NORMAL (NORMAL)
--- NOTE | 2018-05-15 11:30 | NUR ---
Pt alert and oriented and spouse at bedside. Pt very tired this am. Pt has productive cough with greenish tinged sputum noted. Pt using urinal to void with yellow urine clear. Pt has chronic pain managed with PRN meds. Pt am assessment completed. Pt cares provided. Pt has left arm wrapped. Pt has call light in reach and denies needs.
--- NOTE | 2018-05-15 13:36 | NUR ---
SW contacted and faxed updates to Stacy at [facility].
--- NOTE | 2018-05-15 18:31 | NUR ---
Pt stable this afternoon. Pt continues to have productive cough. Pt pain managed with PRN meds. Pt cares provided. Pt bonny further needs. Pt had no diarrhea or vomiting. Pt has call light in reach.
--- NOTE | 2018-05-15 21:53 | NUR ---
PT IN BED WITH HOB AT 30 DEGREE ANGLE. PT ADVISES PAIN 3/10 LEG ARM TROBBING AND LEGS HAS SHARP NEEDLE FEELING. PT ADVISES THAT HE CANNOT GET UP TO WALK AND LONG HE KEEPS STILL HE IS OKAY. DRSG TO LEFT ARM INTACT, FINGERS ARE NO SWOLLEN AND COLOR NORMAL. PT IS PLEASANT AND COOPERATIVE. NO NEEDS AT THIS TIME, CALL LIGHT WITHIN REACH.
--- NOTE | 2018-05-16 03:01 | NUR ---
PT HAS HAD AN UNEVENFUL NIGHT. PT HAS BEEN SLEEP/RESTING WITH NO S/S OF PAIN OR DISCOMFORT AND RESP EVEN AND UNLABORED. CALL LIGHT WITHIN REACH.
[2018-05-16 03:26] VITALS: BP 125/56; PULSE 88; TEMP 99.2
--- NOTE | 2018-05-16 03:30 | NUR ---
PT'S O2 DROPPED DOWN TO 86% ON RA. CALLED RT AND RT PLACED NC ON AND O2 AT 2L. PT IS AWARE THAT HIS O2 HAS DROPPED DOWN TO 86% AND NEEDS THE OXYGEN WHILE SLEEPING. PT DENIES PAIN OR DISCOMFORT, CALL LIGHT WITHIN REACH.
--- NOTE | 2018-05-16 06:29 | NUR ---
RECHECKED PT'S O2 SATS WHILE SLEEPING WITH OXYGEN ON. O2 SATS WERE 93% WITH 2L/NC. PT WAS AWAKENED AND ADVISED TO MAKE SURE TO SLEEP WITH O2 ON. PT DENIES ANY PAIN OR DISCOMFORT AND NO FURTHER NEEDS. CALL LIGHT WITHIN REACH.
[2018-05-16 08:00] VITALS: BP 109/65; PULSE 88; TEMP 99.9
[2018-05-16 08:35] VITALS: BP 104/61; PULSE 82
[2018-05-16 12:00] VITALS: BP 100/61; PULSE 84; TEMP 99.1
--- NOTE | 2018-05-16 14:39 | NUR ---
Pt stable this afternoon. Pt alert and oriented. Pt had hard BM this afternoon. Pt buttucks pressure ulcers cleansed and mepilex applied. Ulcer beds have new epithelial noted. Pt has oxygen on at 1L d/t pt desat to 86% on room air when falls asleep off and on. Pt denies needs at this time and has call light in reach.
[2018-05-16 16:00] VITALS: BP 107/61; PULSE 99; TEMP 99.4
--- NOTE | 2018-05-16 19:55 | NUR ---
Shift assessment complete. Pt resting in bed, awake, a&o, cooperative c cares. Pt reports continued, chronic pain to legs et feet which is "a little better than it has been", will give PRN pain med c HS meds. Pt denies any other c/o. Portacath noted to R chest, patent c good blood return. Pt denies further needs. Call light in reach, will monitor.
[2018-05-16 20:50] VITALS: BP 123/57; PULSE 93; TEMP 99.9
[2018-05-17 01:20] VITALS: BP 112/64; PULSE 76; TEMP 98.5
[2018-05-17 04:20] VITALS: PULSE 86; TEMP 99.8
--- NOTE | 2018-05-17 09:05 | NUR ---
Assessment completed, alert/oriented, vital signs stable/ afebrile this morning, denies significant pain at this time, heart RRR/dsital pulses are palapblem, 1+ edema to BLE and he reports this is improving, lungs CTA/ diminished throughout, left arm wrapped/dressed per ortho prior to hospitilization, he is sitting at the edge ofthe bed eating breakfast, denies other neesd at this time, possible transfer back to [facility]/ PT order for eval
[2018-05-17 09:31] VITALS: BP 114/68; PULSE 89; TEMP 98.1
[2018-05-17] MEDS ORDERED: NEURONTIN400 MG/CAP PO (10:49)
[2018-05-17] MEDS ORDERED: IPRATROPIUM BROM3 M1 IH (10:49)
[2018-05-17] MEDS ORDERED: CLEOCIN HCL300 MG PO (11:40)
[2018-05-17 12:21] VITALS: TEMP 97.6
[2018-05-17 12:29] VITALS: BP 114/68; PULSE 89; TEMP 97.6
--- NOTE | 2018-05-17 12:52 | NUR ---
The patient is to discharge today, 05/17, back to [facility] for a skilled stay. Transportation was set for 1245, via [facility]. The patient, patient's , and nurse were all in agreeance. SW also presented and explained the IM form to the patient and patient's . The patient's verbalized understanding, signed, and she was provided a copy. No additional needs at this time.
--- NOTE | 2018-05-17 14:46 | NUR ---
Patient transferring back to [facility], I have attempted to call report 3 different times with no answer, PORT flushed with Heparin prior to de-accessing, present at [facility] of discharge
== END 2018-05-17 14:47 | DRG 178 ==
LOC: COL.ER 20:22 → SURG 22:49 → COL.ER 22:49 → SURG 05-10 18:39 → MEDICAL 05-10 18:39
PROVIDERS: Emergency Medicine; Internal Medicine; Nurse Practitioner; Nurse Practitioner Family; Physician Assistant; ADMIT Hospitalist
DX: J15.211 Pneumonia due to Methicillin susceptible Staphylococcus aureus (principal); C83.38 Diffuse large B-cell lymphoma, lymph nodes of multiple sites; I48.92 Unspecified atrial flutter; I42.9 Cardiomyopathy, unspecified; M84.422A Pathological fracture, left humerus, initial encounter for fracture; I10 Essential (primary) hypertension; E78.5 Hyperlipidemia, unspecified; I25.10 Atherosclerotic heart disease of native coronary artery without angina pectoris; I48.0 Paroxysmal atrial fibrillation; Z85.3 Personal history of malignant neoplasm of breast; J84.10 Pulmonary fibrosis, unspecified; Z87.891 Personal history of nicotine dependence; I89.0 Lymphedema, not elsewhere classified; Z86.711 Personal history of pulmonary embolism; Z79.01 Long term (current) use of anticoagulants; D89.9 Disorder involving the immune mechanism, unspecified
CPT/HCPCS: 99222-AI; 99232-AI; 99233-AI; 99239; A4216; G9654; J0692; J1956; J2704; J3010; J3370; J7030; J7050

== ENCOUNTER → 2018-05-29 | Outpatient (CLI) | payer MEDICARE, OTHER ==
[~2018-05-29] MED LIST changes: +CLEOCIN HCL300 MG PO; +COMPAZINE 110 MG/TAB PO; +IPRATROPIUM BROM3 M1 IH; +K-DUR20 MEQ PO; +NEURONTIN400 MG/CAP PO; +ZOVIRAX400 MG PO
== END ==
LOC: ZCOL.LAB 11:30
DX: J15.211 Pneumonia due to Methicillin susceptible Staphylococcus aureus (principal)

== ENCOUNTER → 2018-06-07 | Outpatient (REF) ==
[2018-06-07 17:44] LABS: BASO % 0.4 % (0.0-2.0); EOS # 0.3 (0.0-0.7); EOS % 2.7 % (0-4.0); GRAN # 7.2 (1.4-6.5); GRAN % 78.3 % (42.2-75.2); LYMPH # 0.9 (1.2-3.4); LYMPH % 10.2 % (20.0-51.0); MEAN CELL VOLUME 96 fl (80.0-100.0); MEAN CORPUSCULAR HGB CONC 32 g/dl (33.0-37.0); MEAN PLATELET VOLUME 10.1 fl (7.4-10.4); MONO # 0.7 (0.1-0.6); MONO % 7.4 % (1.7-9.3); PLATELET COUNT 140 K/mm3 (130-400); RED BLOOD COUNT 2.77 M/mm3 (4.20-5.60); REDCELL DISTRIBUTION WIDTH-CV 17.5 % (11.5-14.5)
[2018-06-07 17:45] LABS: HEMATOCRIT 26.5 % (42.0-52.0); HEMOGLOBIN 8.5 g/dl (13.5-18.0); MEAN CORPUSCULAR HEMOGLOBIN 31 pg (27.0-31.0)
== END ==
LOC: ZCOL.LAB 17:36
PROVIDERS: Internal Medicine
DX: C79.51 Secondary malignant neoplasm of bone (principal); C83.39 Diffuse large B-cell lymphoma, extranodal and solid organ sites; Z85.3 Personal history of malignant neoplasm of breast

== ENCOUNTER → 2018-07-21 | Outpatient (CLI) | payer MEDICARE | LOC: COL.RAD 13:05 | DX: Z13.6 Encounter for screening for cardiovascular disorders (principal); C83.39 Diffuse large B-cell lymphoma, extranodal and solid organ sites; C79.51 Secondary malignant neoplasm of bone; M79.89 Other specified soft tissue disorders ==

== ENCOUNTER 2018-09-06 16:07 | Inpatient (IN) | payer MEDICARE ==
[2018-09-06] VITALS (11 sets, daily range): BP systolic 83–110; BP diastolic 40–52; PULSE 87; TEMP 99
[~2018-09-06] VITALS: Ht 172.7 cm; Wt 114.1 kg
[2018-09-06 16:59] LABS: INR 1.2 (0.8-3.0)
[2018-09-06 17:02] LABS: BASO % 0.4 % (0.0-2.0); EOS # 0.2 (0.0-0.7); EOS % 1.9 % (0-4.0); GRAN # 7.1 (1.4-6.5); GRAN % 85.9 % (42.2-75.2); LYMPH # 0.6 (1.2-3.4); LYMPH % 6.8 % (20.0-51.0); MEAN CELL VOLUME 94 fl (80.0-100.0); MEAN CORPUSCULAR HGB CONC 31 g/dl (33.0-37.0); MEAN PLATELET VOLUME 10.1 fl (7.4-10.4); MONO # 0.4 (0.1-0.6); MONO % 4.3 % (1.7-9.3); PARTIAL THROMBOPLASTIN TIME 90.5 SECONDS (26.0-37.0); PLATELET COUNT 167 K/mm3 (130-400); RED BLOOD COUNT 3.12 M/mm3 (4.20-5.60); REDCELL DISTRIBUTION WIDTH-CV 16.4 % (11.5-14.5)
[2018-09-06 17:07] LABS: HEMATOCRIT 29.3 % (42.0-52.0); HEMOGLOBIN 9.2 g/dl (13.5-18.0); MEAN CORPUSCULAR HEMOGLOBIN 29 pg (27.0-31.0)
[2018-09-06 17:19] LABS: ALANINE AMINOTRANSFERASE < 6 U/L (21-72); ALBUMIN 3.3 gm/dL (3.5-5.0); ALKALINE PHOSPHATASE 75 U/L (50-136); ANION GAP 7 mmol/L (7-16); AST,SGOT 22 U/L (15-37); BILIRUBIN,TOTAL 0.3 mg/dL (0.0-1.0); BLOOD UREA NITROGEN 14 mg/dL (9-20); CALCIUM 8.6 mg/dL (8.4-10.2); CARBON DIOXIDE 24 mmol/L (22-30); CHLORIDE 104 mmol/L (98-107); CREATININE, serum 0.68 (0.66-1.25); GLUCOSE 117 mg/dL (74-106); POTASSIUM 4.2 mmol/L (3.4-5.0); SODIUM 135 mmol/L (137-145); TOTAL PROTEIN 6.3 gm/dL (6.4-8.2)
[2018-09-06 17:32] LABS: TROPONIN-I < 0.012 ng/mL (0.000-0.035)
[2018-09-06 18:07] LABS: ARTERIAL BLD GAS O2 SATURATION 94.8 % (92-100); ARTERIAL BLD GAS TCO2 CT 24.1; ARTERIAL BLOOD GAS BASE EXCESS 0.6 (-2-2); ARTERIAL BLOOD GAS HCO3 23.2 meq/L (22-26); ARTERIAL BLOOD GAS PCO2 29.9 mmHg (35-45); ARTERIAL BLOOD GAS pH 7.51 (7.35-7.45)
[2018-09-06] MEDS ORDERED: PROBIOTIC FORMU1 CAP PO (20:19)
--- NOTE | 2018-09-06 20:20 | NUR ---
Arrived to medical floor. Hilary Chavez APRN in room with patient
--- NOTE | 2018-09-06 21:25 | NUR ---
Assessment complete. Lungs clear. Heart sounds normal. Bowels active x4. Pulses strong throughout. No eric noted. Denies pain at this time. Orientated patient to medical floor. All questions answered. Denies needs. Call light in reach.
--- NOTE | 2018-09-06 21:42 | NUR ---
Blood pressure 80/40, rechecked 83/40. Notified APRN. Hilary NS fluid bolus x1 monitor BP Q15 min. After first bolus notify of blood pressures
--- NOTE | 2018-09-06 22:45 | NUR ---
Baldwin inserted as ordered. 100ml of clear yellow urine returned. Lidocaine jelly used. Pericare preformed before and after. Denies other needs at this time. Call light in reach
--- NOTE | 2018-09-06 23:54 | NUR ---
RAMAKRISHNA Richard notifed of RVP results, VBG results, and blood pressures. Will continue to monitor.
[2018-09-07] VITALS (956 sets, daily range): BP systolic 89–112; BP diastolic 45–63; PULSE 62–77; TEMP 97.8–98.9; O2SAT 86–100
--- NOTE | 2018-09-07 01:18 | NUR ---
RAMAKRISHNA Richard notifed of blood pressures. Will transfer to ICU.
--- NOTE | 2018-09-07 01:55 | NUR ---
Phone report received from Columba DIAMOND on medical.
--- NOTE | 2018-09-07 02:10 | NUR ---
Report given. Patient transferred to ICU
--- NOTE | 2018-09-07 02:15 | NUR ---
Pt arrived X2 RN's from medical floor with personal belongings. Beds transfered at this time. Pt alert and oriented with no complaints or questions. Assessment completed at this time.
--- NOTE | 2018-09-07 05:01 | NUR ---
Pt spouse called for an update. Provided pt ID# for verification purposes. Updated provided on how pt is doing at this time and reason for coming to the unit. Tx with fluid bolus and notification that sepsis is the potential cause of low bp. Notified of droplet precautions and visiting hours.
[2018-09-07 05:22] LABS: BASO % 0.3 % (0.0-2.0); EOS # 0.2 (0.0-0.7); EOS % 3.4 % (0-4.0); GRAN # 4.8 (1.4-6.5); GRAN % 77.6 % (42.2-75.2); LYMPH # 0.7 (1.2-3.4); LYMPH % 10.6 % (20.0-51.0); MEAN CELL VOLUME 94 fl (80.0-100.0); MEAN CORPUSCULAR HGB CONC 31 g/dl (33.0-37.0); MEAN PLATELET VOLUME 9.6 fl (7.4-10.4); MONO # 0.5 (0.1-0.6); MONO % 7.5 % (1.7-9.3); PLATELET COUNT 138 K/mm3 (130-400); RED BLOOD COUNT 2.49 M/mm3 (4.20-5.60); REDCELL DISTRIBUTION WIDTH-CV 16.8 % (11.5-14.5)
[2018-09-07 05:27] LABS: HEMATOCRIT 23.5 % (42.0-52.0); HEMOGLOBIN 7.2 g/dl (13.5-18.0); MEAN CORPUSCULAR HEMOGLOBIN 29 pg (27.0-31.0)
[2018-09-07 05:40] LABS: ALBUMIN 2.6 gm/dL (3.5-5.0); BILIRUBIN,TOTAL 0.2 mg/dL (0.0-1.0); CALCIUM 7.5 mg/dL (8.4-10.2); CREATININE, serum 0.6 (0.66-1.25); POTASSIUM 3.5 mmol/L (3.4-5.0); TOTAL PROTEIN 5.1 gm/dL (6.4-8.2)
--- NOTE | 2018-09-07 07:20 | NUR ---
Report provided to Inderjit Dowd RN.
[2018-09-07 08:11] LABS: HEMOGLOBIN 7.2 g/dl (13.5-18.0)
[2018-09-07 09:10] LABS: COLLECTION METHOD CLEAN CATCH
[2018-09-07 09:19] LABS: MUCOUS Present /lpf; PH 5 (5-8); SQUAMOUS EPITHELIAL 0-2 /hpf; URINE APPEARANCE Clear; URINE BACTERIA Rare /hpf; URINE BILIRUBIN Negative (NEGATIVE); URINE BLOOD 1+ (NEGATIVE); URINE COLOR Straw; URINE GLUCOSE Negative (NEGATIVE); URINE KETONE Negative (NEGATIVE); URINE LEUKOCYTE ESTERASE Negative (NEGATIVE); URINE NITRATE Negative (NEGATIVE); URINE PROTEIN(semi-quant) Negative (NEGATIVE); URINE UROBILINOGEN Negative (NEGATIVE)
--- NOTE | 2018-09-07 09:30 | NUR ---
Interdisciplinary team has rounded. MD Lisa notifed of IV discontinued, ordered to not insert new IV - anitbiotics will be ordered as PO. Chanel (psyc) called on cell phone, no answer - left message. Office called and notifed of consult that was placed yesterday during her oncall hours - office staff notified she is no longer resource conservation manager, consultation form faxed to office. MD Lisa notifed - states that Jose will need to see pt if MD Chanel refuses to see pt. Chemical Processor on unit, updated by MD Lisa Police deputy shift changed occured
--- NOTE | 2018-09-07 10:14 | NUR ---
Initial visit; Patient thanked Professor Of Mechanical Engineering for looking in on him and keeping him in her prayers.
--- NOTE | 2018-09-07 10:25 | NUR ---
SW student attended clinical rounds and met with patient and patient's (Ratna) to discuss discharge plan. Patient lives in [place] with his . Patient's PCP is Dr. Chey Mercado and he uses the [facility] in [place]. Patient uses a walker and reports independence with ADLs. Patient's DPOA-HC is in EMR and it designates his . Patient's goal is to return home upon discharge. No identified needs at this time. SW to continue to follow to ensure safe discharge.
[2018-09-07 17:52] LABS: HEMATOCRIT 24.1 % (42.0-52.0); HEMOGLOBIN 7.6 g/dl (13.5-18.0)
[2018-09-07 18:00] LABS: MAGNESIUM 1.8 mg/dL (1.6-2.3); POTASSIUM 3.6 mmol/L (3.4-5.0)
[2018-09-08] VITALS (888 sets, daily range): BP systolic 97–114; BP diastolic 48–78; PULSE 45–75; TEMP 97.5–98; O2SAT 80–100
--- NOTE | 2018-09-08 00:15 | NUR ---
Patient called to request help placing CPAP. CPAP placed; no other concerns at this time.
--- NOTE | 2018-09-08 01:49 | NUR ---
0200 SVN TX WAS NOT ODNE TONIGHT , DUE PATIENT WEARING HOME CPAP.
[2018-09-08 05:23] LABS: BASO % 0.2 % (0.0-2.0); GRAN # 3.9 (1.4-6.5); LYMPH # 0.4 (1.2-3.4); LYMPH % 8.6 % (20.0-51.0); MEAN CELL VOLUME 97 fl (80.0-100.0); MEAN CORPUSCULAR HGB CONC 30 g/dl (33.0-37.0); MEAN PLATELET VOLUME 10.1 fl (7.4-10.4); MONO # 0.1 (0.1-0.6); MONO % 2.5 % (1.7-9.3); PLATELET COUNT 132 K/mm3 (130-400); RED BLOOD COUNT 2.28 M/mm3 (4.20-5.60); REDCELL DISTRIBUTION WIDTH-CV 16.2 % (11.5-14.5)
[2018-09-08 05:31] LABS: HEMATOCRIT 22.2 % (42.0-52.0); HEMOGLOBIN 6.7 g/dl (13.5-18.0); MEAN CORPUSCULAR HEMOGLOBIN 29 pg (27.0-31.0)
[2018-09-08 05:36] LABS: CALCIUM 7.8 mg/dL (8.4-10.2); CREATININE, serum 0.51 (0.66-1.25); POTASSIUM 3.3 mmol/L (3.4-5.0)
--- NOTE | 2018-09-08 05:42 | NUR ---
Reported critical HGB results to hospitalist; received order to transfuse 1 unit of PRBC's.
--- NOTE | 2018-09-08 06:21 | NUR ---
UPDATED VIA TELEPHONE REGARDING PATIENT STATUS AND HOW HE DID OVERNIGHT. INFORMED THAT HE WILL RECIEVE A BLOOD TRANSFUSION HIS HGB DROPPED TO 6.7.
--- NOTE | 2018-09-08 08:58 | NUR ---
Physical Therapy in room with pt
--- NOTE | 2018-09-08 09:05 | NUR ---
Follow-up visit; Patient and states he is doing better and thanked Cafeteria Table Attendant for looking in on them again today and offering God's blessings.
--- NOTE | 2018-09-08 15:40 | NUR ---
REPORT RECEIVED FROM CHARLENE DIAMOND. CARE ASSUMED.
--- NOTE | 2018-09-08 15:42 | NUR ---
Report handed off to LOBO Mcguire who will be taking over care.
--- NOTE | 2018-09-08 17:42 | NUR ---
REPORT CALLED TO DOV DIAMOND. PT IS GOING TO EAT DINNER IN ICU FIRST AND THEN WILL BE TRANSFERRED TO MEDICAL ROOM 314 VIA WHEELCHAIR.
--- NOTE | 2018-09-08 18:00 | NUR ---
PT TRANSFERRED TO MEDICAL ROOM 314. PT'S BELONGINGS TRANSFERRED WITH PATIENT. AT BEDSIDE. CONTACT MADE WITH DOV UPON TRANSFER.
--- NOTE | 2018-09-08 18:15 | NUR ---
Pt arrived to room 314 at this time. He is accompanied by his . Pt is A/O x3. His breathing is even and unlabored on 3L O2 via NC. Pt denies any SOB, reports increased coughing. No pain at this time. Pt ate prior to transfer to medical floor. Denny WADE. Isolation precautions in place. POC discussed with patient who verbalizes understanding. No needs at this time. Call light within reach.
[2018-09-08 18:59] LABS: HEMATOCRIT 28.8 % (42.0-52.0); HEMOGLOBIN 9.1 g/dl (13.5-18.0)
--- NOTE | 2018-09-08 20:11 | NUR ---
Pt in recliner watching TV, assisted to restroom then return to bed, shift aassessments complete, left Pt call light in reach, bed in lowest position.
[2018-09-09 03:29] VITALS: BP 102/50; PULSE 70; TEMP 97.7
--- NOTE | 2018-09-09 05:16 | NUR ---
Pt slept well during the night, no C/O pain, VS have remained stable.
[2018-09-09 07:11] LABS: BASO % 0.1 % (0.0-2.0); GRAN # 9.3 (1.4-6.5); LYMPH # 0.3 (1.2-3.4); LYMPH % 3.3 % (20.0-51.0); MEAN CORPUSCULAR HGB CONC 30 g/dl (33.0-37.0); MONO # 0.3 (0.1-0.6); MONO % 2.8 % (1.7-9.3); PLATELET COUNT 175 K/mm3 (130-400); RED BLOOD COUNT 2.94 M/mm3 (4.20-5.60); REDCELL DISTRIBUTION WIDTH-CV 20.1 % (11.5-14.5)
[2018-09-09 07:22] LABS: HEMATOCRIT 27.1 % (42.0-52.0); HEMOGLOBIN 8.2 g/dl (13.5-18.0); MEAN CORPUSCULAR HEMOGLOBIN 28 pg (27.0-31.0)
[2018-09-09 07:25] LABS: MEAN CELL VOLUME 92 fl (80.0-100.0)
[2018-09-09 07:29] LABS: ALBUMIN 2.8 gm/dL (3.5-5.0); BILIRUBIN,TOTAL 0.2 mg/dL (0.0-1.0); CALCIUM 8.7 mg/dL (8.4-10.2); CREATININE, serum 0.58 (0.66-1.25); MAGNESIUM 2.1 mg/dL (1.6-2.3); POTASSIUM 4.2 mmol/L (3.4-5.0); TOTAL PROTEIN 5.4 gm/dL (6.4-8.2)
[2018-09-09 08:03] VITALS: BP 105/43; PULSE 74; TEMP 97.5
--- NOTE | 2018-09-09 09:03 | NUR ---
Assessment complete. Patient is alert and oriented to person, place, and day. Patient denies pain at this time. Lung sounds are clear throughout. Patient does have a cough, nonproductive, denies shortness of breath, on 3L via nasal cannula. Portacath dressing is CDI, flushes easily with blood return. Morning medications have been administered. Patient is eating breakfast in bed at this time. He denies any further needs or questions. Call light is within reach, will continue to monitor.
[2018-09-09 11:34] VITALS: BP 118/62; PULSE 73; TEMP 97.6
--- NOTE | 2018-09-09 14:38 | NUR ---
PT TAKEN OFF O2 AT REST SPO2 95% PT WALKED ON RA APPROX 25 FEET BECAME DYSPNEIC SPO2 82% BACK TO ROOM ON 2 LPM ALLOWED TO REST SPO2 96%
[2018-09-09 15:29] VITALS: BP 121/66; PULSE 82; TEMP 97.8
--- NOTE | 2018-09-09 18:20 | NUR ---
Pt has been resting on and off throughout the day. He has remained free of pain. Denny D/C'D per protocol. Pt is sitting up in the chair watching TV at this time and he denies further needs. Call light within reach.
[2018-09-09 19:35] VITALS: BP 122/62; PULSE 72; TEMP 97.7
--- NOTE | 2018-09-09 20:40 | NUR ---
Pt resting in bed watching TV, no C/O pain at this time, shift assessments complete, left Pt call light in reach, bed in lowest position.
[2018-09-09 23:35] VITALS: BP 103/47; PULSE 65; TEMP 97.6
[2018-09-10 03:49] VITALS: BP 96/44; PULSE 66; TEMP 97.7
--- NOTE | 2018-09-10 05:16 | NUR ---
Pt slept well during the night, he has had no C/O pain overnight. Pt has been up and voided after the Baldwin was removed by the prior shift. VS have remained stable.
[2018-09-10 07:37] VITALS: BP 130/59; PULSE 67; TEMP 98.7
[2018-09-10 08:27] LABS: ALBUMIN 2.9 gm/dL (3.5-5.0); BILIRUBIN,TOTAL 0.3 mg/dL (0.0-1.0); CALCIUM 8.8 mg/dL (8.4-10.2); CREATININE, serum 0.64 (0.66-1.25); POTASSIUM 3.5 mmol/L (3.4-5.0); TOTAL PROTEIN 5.6 gm/dL (6.4-8.2)
--- NOTE | 2018-09-10 08:57 | NUR ---
Assessment complete. Pt is AXO X3, denies having any pain at this time. Breathing is even and unlabored on 3L via NC. Tele on. R chest portacath has good blood return, flushes easily, remains free of complications, and is CDI. Pt's is at the bedside; all questions answered. Pt is sitting up in the chair eating his breakfast at this time and he denies further needs. Call light within reach, will continue to monitor.
[2018-09-10 10:27] LABS: BASO % 0.1 % (0.0-2.0); EOS % 0.1 % (0-4.0); GRAN # 6.4 (1.4-6.5); GRAN % 80.5 % (42.2-75.2); LYMPH # 0.7 (1.2-3.4); LYMPH % 8.8 % (20.0-51.0); MEAN CELL VOLUME 92 fl (80.0-100.0); MEAN CORPUSCULAR HGB CONC 31 g/dl (33.0-37.0); MONO # 0.7 (0.1-0.6); MONO % 9.1 % (1.7-9.3); PLATELET COUNT 213 K/mm3 (130-400); RED BLOOD COUNT 3.19 M/mm3 (4.20-5.60); REDCELL DISTRIBUTION WIDTH-CV 19.9 % (11.5-14.5)
[2018-09-10 10:28] LABS: HEMATOCRIT 29.3 % (42.0-52.0); HEMOGLOBIN 9.1 g/dl (13.5-18.0); MEAN CORPUSCULAR HEMOGLOBIN 29 pg (27.0-31.0)
[2018-09-10 11:40] VITALS: BP 126/62; PULSE 75; TEMP 97.6
--- NOTE | 2018-09-10 11:45 | NUR ---
The patient is being prescribed oxygen. LAZ presented the DME Patient Choice Form. The patient chose [facility] in [place] to provide the oxygen. The original was placed in the chart and a copy was provided to the patient. LAZ faxed orders to [facility] Home Medical. The patient is to discharge today, 09/10. [facility] will deliver oxygen to patient before discharge.
[2018-09-10] MEDS ORDERED: CEFTIN500 MG PO (12:15)
[2018-09-10] MEDS ORDERED: ZITHROMAX 250M250 MG PO (12:16)
[2018-09-10] MEDS ORDERED: PROAIR HFA0.09 MG/AC IH (12:16)
[2018-09-10] MEDS ORDERED: CORDARONE200 MG/TAB PO (12:17)
[2018-09-10] MEDS ORDERED: PREDNISONE10 MG PO (12:19)
--- NOTE | 2018-09-10 14:50 | NUR ---
Pt discharged at this time. R chest portacath deaccessed per protocol. Education provided and all questions were answered. Pt and his both verbalize understanding. Pt escourted out via WC with tech. Reshma
== END 2018-09-10 14:55 | disposition home or self-care (01) | DRG 871 ==
LOC: COL.ER 16:07 → MEDICAL 18:22 → ICU 18:22 → MEDICAL 09-08 19:06
PROVIDERS: Emergency Medicine; Internal Medicine; Internal Medicine Pulmonary Disease; Nurse Practitioner Family; Physician Assistant
DX: A41.9 Sepsis, unspecified organism (principal); R65.21 Severe sepsis with septic shock; J96.01 Acute respiratory failure with hypoxia; C85.90 Non-Hodgkin lymphoma, unspecified, unspecified site; I42.9 Cardiomyopathy, unspecified; E87.2 Acidosis; I48.92 Unspecified atrial flutter; I10 Essential (primary) hypertension; G47.33 Obstructive sleep apnea (adult) (pediatric); Z85.3 Personal history of malignant neoplasm of breast; I48.0 Paroxysmal atrial fibrillation; Z86.711 Personal history of pulmonary embolism; Z79.01 Long term (current) use of anticoagulants; I25.10 Atherosclerotic heart disease of native coronary artery without angina pectoris; N40.0 Benign prostatic hyperplasia without lower urinary tract symptoms; Z87.891 Personal history of nicotine dependence; J84.10 Pulmonary fibrosis, unspecified; D64.9 Anemia, unspecified; E78.5 Hyperlipidemia, unspecified; B97.29 Other coronavirus as the cause of diseases classified elsewhere; J47.9 Bronchiectasis, uncomplicated; I45.10 Unspecified right bundle-branch block; E87.6 Hypokalemia
CPT/HCPCS: 99232-AI; 99233-AI; 99239; A4216; J0692; J0696; J1644; J2920; J3370; J7030; J7040; J7050; J7512; P9016; Q9967

== ENCOUNTER 2019-10-13 00:37 | Inpatient (IN) | payer MEDICARE ==
[~2019-10-13] VITALS: Ht 175.3 cm; Wt 143.5 kg
[~2019-10-13 00:37] MED LIST changes: +CEFTIN500 MG PO; +COZAAR 25MG25 MG/TAB PO; +PREDNISONE10 MG PO; +PROAIR HFA0.09 MG/AC IH; +PROBIOTIC FORMU1 CAP PO; +TOPROL XL 25MG25 MG PO; +ZITHROMAX 250M250 MG PO
[2019-10-13 01:26] LABS: ARTERIAL BLD GAS TCO2 CT 23.4; ARTERIAL BLOOD GAS BASE EXCESS -1.2 (-2-2); ARTERIAL BLOOD GAS HCO3 22.4 meq/L (22-26); ARTERIAL BLOOD GAS PCO2 33.9 mmHg (35-45); ARTERIAL BLOOD GAS PO2 72.3 mmHg (80-100); ARTERIAL BLOOD GAS pH 7.44 (7.35-7.45)
[2019-10-13 01:44] LABS: BASO % 0.2 % (0.0-2.0); GRAN # 10.5 (1.4-6.5); GRAN % 84.7 % (42.2-75.2); HEMOGLOBIN 10.6 g/dl (13.5-18.0); LYMPH % 8.3 % (20.0-51.0); MEAN CELL VOLUME 98 fl (80.0-100.0); MEAN CORPUSCULAR HEMOGLOBIN 32 pg (27.0-31.0); MEAN CORPUSCULAR HGB CONC 32 g/dl (33.0-37.0); MONO # 0.8 (0.1-0.6); MONO % 6.4 % (1.7-9.3); PLATELET COUNT 150 K/mm3 (130-400); RED BLOOD COUNT 3.35 M/mm3 (4.20-5.60); REDCELL DISTRIBUTION WIDTH-CV 13.6 % (11.5-14.5)
[2019-10-13 01:50] LABS: INR 1.9 (0.8-3.0); PROTHROMBIN TIME 21.4 SECONDS (9.7-12.8)
[2019-10-13 01:56] LABS: HEMATOCRIT 32.9 % (42.0-52.0)
[2019-10-13 02:03] LABS: ALBUMIN 3.9 gm/dL (3.5-5.0); BILIRUBIN,TOTAL 0.9 mg/dL (0.0-1.0); CALCIUM 8.4 mg/dL (8.4-10.2); CREATININE, serum 1.74 (0.66-1.25); POTASSIUM 4.7 mmol/L (3.4-5.0); TOTAL PROTEIN 7.7 gm/dL (6.4-8.2)
[2019-10-13 02:14] LABS: TROPONIN-I 0.018 ng/mL (0.000-0.035)
[2019-10-13 02:56] LABS: COLLECTION METHOD CLEAN CATCH
[2019-10-13 03:03] LABS: MUCOUS Present /lpf; PH 5 (5-8); SQUAMOUS EPITHELIAL 0-2 /hpf; URINE APPEARANCE Hazy; URINE BACTERIA None Seen /hpf; URINE BILIRUBIN Negative (NEGATIVE); URINE BLOOD Negative (NEGATIVE); URINE COLOR Yellow; URINE GLUCOSE Negative (NEGATIVE); URINE KETONE Negative (NEGATIVE); URINE LEUKOCYTE ESTERASE Trace (NEGATIVE); URINE NITRATE Negative (NEGATIVE); URINE PROTEIN(semi-quant) 1+ (NEGATIVE); URINE RBC 0-2 /hpf; URINE UROBILINOGEN Negative (NEGATIVE)
[2019-10-13] MEDS ORDERED: VITAMIND3 5000 PO (08:54)
[2019-10-13] MEDS ORDERED: ALDACTONE 25MG25 M1 PO (08:55)
[2019-10-13] MEDS ORDERED: ZEBETA 5MG5 MG PO (08:55)
[2019-10-13] MEDS ORDERED: LASIX 20MG TABL20 MG PO (08:55)
[2019-10-13 11:51] VITALS: BP 98/49; PULSE 62; TEMP 98.1
[2019-10-13 11:57] VITALS: BP 109/51; PULSE 60; TEMP 98.1
--- NOTE | 2019-10-13 16:00 | NUR ---
SW met with patient at his bedside to complete intake. Pt had difficulties speaking for long periods of time, and gave tis SW verbal permission to contact to complete intake. SW called Pt's Ratna at [phone] who is care support and EMR. She did indicated that patient does have a DPOA,and that he does utilize 3l of oxygen continuously. Spouse reports that patient uses a wheelchair, walker and a CPAP machine. Patients PCP is Dr. Cuadra with an upcoming appointment in December 2019. Patient gets his medications from [facility] in [place] with no concerns. Spouse indicated a need for [facility] services at this time. SW will continue to follow.
[2019-10-13 16:11] VITALS: BP 101/51; PULSE 61; TEMP 97.7
--- NOTE | 2019-10-13 18:32 | NUR ---
Pt up to floor from the ER this morning. Pt was having several painful spasms in his back during the initial admission assessments, medications given for relief have reduced the spasms Pt was having. all initial assessments completed.
--- NOTE | 2019-10-13 19:45 | NUR ---
Patient assessed at this time. Alert and oriented x 4, and able to make needs known. Reported level 10 pain to back/abdomen area. Given PRN Dilaudid for pain. PORT to right chest. Dressing CDI. Patient reports SOB and dyspnea with exertion. LS coarse crackles throughout, expiratory wheezes. Moist cough, unable to produce sputum. Respirations labored. On oxygen at 3 L/min via NC. HRR. Telemetry on. Capillary refill less than 3 seconds. Non-tenting skin turgor. BSAx4. Indwelling quijano catheter with clear yellow urine via dependent drainage. 2+ edema BLE. Voices no questions, needs, or concerns at this time. Resting in bed with call light within reach.
[2019-10-13 19:47] VITALS: BP 94/55; PULSE 60; TEMP 97.5
--- NOTE | 2019-10-13 21:30 | NUR ---
Patient given PRN Percocet for level 8 pain to abdomen/back area. Switched over to CPAP with 3 L oxygen bleed in at this time. Voices no further questions, needs, or concerns. Encouraged to call if needing more pain medication, and voiced understanding.
[2019-10-13 23:34] VITALS: BP 101/56; PULSE 59; TEMP 98
--- NOTE | 2019-10-14 00:37 | NUR ---
Patient complaining of level 8 pain to abdomen/back. Given PRN Dilaudid at this time.
[2019-10-14 03:42] VITALS: BP 124/52; PULSE 64; TEMP 99.1
--- NOTE | 2019-10-14 05:23 | NUR ---
Patient has not voiced any further complaints of pain or discomfort at this time. Resting in bed with CPAP on. call light within reach. Indwelling quijano catheter continues to drain clear yellow urine via dependent drainage.
[2019-10-14 06:44] LABS: BASO % 0.4 % (0.0-2.0); EOS # 0.2 (0.0-0.7); EOS % 2.2 % (0-4.0); GRAN # 7.5 (1.4-6.5); GRAN % 69.3 % (42.2-75.2); HEMOGLOBIN 10.1 g/dl (13.5-18.0); LYMPH # 2.2 (1.2-3.4); MEAN CELL VOLUME 100 fl (80.0-100.0); MEAN CORPUSCULAR HEMOGLOBIN 32 pg (27.0-31.0); MEAN CORPUSCULAR HGB CONC 32 g/dl (33.0-37.0); MEAN PLATELET VOLUME 9.2 fl (7.4-10.4); MONO # 0.8 (0.1-0.6); MONO % 7.6 % (1.7-9.3); PLATELET COUNT 178 K/mm3 (130-400); RED BLOOD COUNT 3.17 M/mm3 (4.20-5.60)
[2019-10-14 06:54] LABS: HEMATOCRIT 31.8 % (42.0-52.0)
[2019-10-14 06:59] LABS: CALCIUM 8.3 mg/dL (8.4-10.2); CREATININE, serum 1.31 (0.66-1.25); POTASSIUM 4.2 mmol/L (3.4-5.0)
[2019-10-14 07:48] VITALS: BP 99/55; PULSE 59; TEMP 97.8
--- NOTE | 2019-10-14 09:53 | NUR ---
Pt awake and alert upon entry, spouse in room with Pt, Pt has Pian 8/, back spasms have slowed from yesterday but are still occurring this morning. Shift assessments complete, left Pt call light in reach, bed in lowest position
[2019-10-14 13:16] VITALS: BP 102/55; PULSE 59; TEMP 97.8
--- NOTE | 2019-10-14 15:04 | NUR ---
NEW ORDER FOR DUONEB. GIVEN PRN JUST NOW. FIRST SCHEDULED TX AT 1900.
[2019-10-14 17:09] VITALS: BP 91/61; PULSE 59; TEMP 97.6
[2019-10-14 19:51] VITALS: BP 119/51; PULSE 64; TEMP 97.8
--- NOTE | 2019-10-14 20:02 | NUR ---
Pt resting in the room today, has had no C/O pain during the shift. had discussion with Pt about better choices in food selection for a diabetic. Vs have reained stable, glucose levels remain WNL on the insulin currently administered.
--- NOTE | 2019-10-14 20:05 | NUR ---
Received report from Wilbur. Seen patient awake, lying in bed. Patient's on the bedside. Reports pain still tolerable. On O2 at 3lpm via NC. With portacath on right chest. Arm restrict band applied on left arm. Urinal at the bedside.
--- NOTE | 2019-10-14 20:06 | NUR ---
Pt resting in the room today, quijano removed this afternoon 8ml drained from balloon balloon intact after removal, Pt tolerated procedure well. Pt still having spasms in his back / abdominal area. VS have remained stable.
--- NOTE | 2019-10-14 20:40 | NUR ---
Started patient on fluids, NS at 60ml/hr. He reports pain on his back at 7/10. Percocet PRN given.
[2019-10-14 23:44] VITALS: BP 104/48; PULSE 64; TEMP 98.3
[2019-10-15 03:46] VITALS: BP 106/57; PULSE 59; TEMP 98.4
--- NOTE | 2019-10-15 05:42 | NUR ---
Patient started to feel back pain with pain score of 7/10 after getting up from bed to go to the restroom. Percocet PRN given. Patient had an uneventful night. Last complain of pain was at 2039H. He was able to sleep tonight.
--- NOTE | 2019-10-15 06:39 | NUR ---
Vancomycin Initial Dosing Pharmacy Note Ordering provider: Johana Darnell Indication/duration: staph bacteremia Relevant comorbidities: obesity LABS: WBC 10.8, SCr 1.3, CrCl 53 Recommendation: vancomycin ~15 mg/kg Loading dose: 1 g and start maintenance dosing ~ 4 hours early Maintenance dose: 1.5 grams every 12 hours Trough goal: 15-20 ug/mL. Trough / at 1830
[2019-10-15 06:57] LABS: BASO % 0.5 % (0.0-2.0); EOS # 0.3 (0.0-0.7); EOS % 5.5 % (0-4.0); GRAN # 4.5 (1.4-6.5); GRAN % 72.5 % (42.2-75.2); LYMPH # 0.7 (1.2-3.4); LYMPH % 11.8 % (20.0-51.0); MEAN CELL VOLUME 100 fl (80.0-100.0); MEAN CORPUSCULAR HGB CONC 33 g/dl (33.0-37.0); MEAN PLATELET VOLUME 9.1 fl (7.4-10.4); MONO # 0.6 (0.1-0.6); MONO % 9.2 % (1.7-9.3); PLATELET COUNT 154 K/mm3 (130-400); RED BLOOD COUNT 2.78 M/mm3 (4.20-5.60); REDCELL DISTRIBUTION WIDTH-CV 13.6 % (11.5-14.5)
[2019-10-15 06:58] LABS: HEMATOCRIT 27.7 % (42.0-52.0); HEMOGLOBIN 9.1 g/dl (13.5-18.0); MEAN CORPUSCULAR HEMOGLOBIN 33 pg (27.0-31.0)
[2019-10-15 07:07] LABS: ALBUMIN 3.1 gm/dL (3.5-5.0); BILIRUBIN,TOTAL 0.6 mg/dL (0.0-1.0); CALCIUM 7.8 mg/dL (8.4-10.2); CREATININE, serum 1.07 (0.66-1.25); POTASSIUM 3.9 mmol/L (3.4-5.0); TOTAL PROTEIN 6.3 gm/dL (6.4-8.2)
[2019-10-15 07:09] VITALS: BP 130/66; PULSE 67; TEMP 97.9
--- NOTE | 2019-10-15 10:50 | NUR ---
Patient has been resting in bed, stated he has had a good breakfast. Was asked if he had pain and he did state usually no but he was observed to grimace and jerk his back. He stated he randomly had spasms in his back. Was provided with pain medication. It was uncomfortable in patients back when the legs were lifted for the assessment. Reports typically having back pain but has only experienced the spasms during this admission, feels it is from the different bed. He was encouraged to speak with the provider as I would as well. He agreed. Call light and personal items are within reach.
[2019-10-15 11:16] VITALS: BP 111/49; PULSE 66; TEMP 98.2
--- NOTE | 2019-10-15 12:30 | NUR ---
First visit from the safety and occupational health manager. No needs right now.
--- NOTE | 2019-10-15 14:10 | NUR ---
ATTEMPTED TO CALL INFECTIOUS DISEASE CONSULT AT THIS TIME. MESSAGE LEFT.
--- NOTE | 2019-10-15 14:45 | NUR ---
Report rcvd from LOBO Camara.
--- NOTE | 2019-10-15 15:15 | NUR ---
LAZ met with the patient and the patient's , Ratna, to follow up about home health. Ratna reports that plan is for the patient to return back home with her upon discharge. She states that at this time, she is not sure if they are going to need or want home health upon discharge. She was interested in receiving a list of the different home health agencies, for it they do decide they want it and if the doctor were to recommend it. LAZ provided her with Medicare.gov's list of home health agencies that serve [place]. LAZ to continue to follow.
[2019-10-15 16:11] VITALS: BP 114/62; PULSE 69; TEMP 97.7
--- NOTE | 2019-10-15 18:52 | NUR ---
Dr. 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 He recommends calling Dr. Florence first thing in the morning since he placed the port and has cases tomorrow.
--- NOTE | 2019-10-15 19:14 | NUR ---
REPORT GIVEN TO LOBO KNAPP.
[2019-10-15 19:34] VITALS: BP 107/51; PULSE 59; TEMP 97.6
--- NOTE | 2019-10-15 19:35 | NUR ---
Received report from Annmarie. Seen patient awake, lying in bed. He reports back pain of 8/10. Dilaudid PRN given. Patient on O2 at 3lpm via NC. Portacath on right chest is clean, dry and intact. Call light within reach.
[2019-10-15 23:27] VITALS: BP 114/52; PULSE 60; TEMP 97.6
--- NOTE | 2019-10-16 01:15 | NUR ---
Dr. Porter called and give an update about the patient. No fever, no diarrhea but still with back pain.
[2019-10-16 03:26] VITALS: BP 108/60; PULSE 62; TEMP 97.9
--- NOTE | 2019-10-16 06:45 | NUR ---
Patient had an uneventful night except for some complains of pain. Dilaudid PRN given this morning for is pain of 8/10. Endorsed patient to Annmarie.
[2019-10-16 07:07] LABS: BASO % 0.3 % (0.0-2.0); EOS # 0.5 (0.0-0.7); EOS % 8.5 % (0-4.0); GRAN % 67.9 % (42.2-75.2); LYMPH # 0.8 (1.2-3.4); LYMPH % 13.1 % (20.0-51.0); MEAN CELL VOLUME 99 fl (80.0-100.0); MEAN CORPUSCULAR HGB CONC 33 g/dl (33.0-37.0); MEAN PLATELET VOLUME 9.1 fl (7.4-10.4); MONO # 0.6 (0.1-0.6); MONO % 9.7 % (1.7-9.3); PLATELET COUNT 163 K/mm3 (130-400); RED BLOOD COUNT 2.82 M/mm3 (4.20-5.60); REDCELL DISTRIBUTION WIDTH-CV 13.8 % (11.5-14.5)
--- NOTE | 2019-10-16 07:13 | NUR ---
DR. JOSHUA CONTACTED; WILL BE IN TO CHECK PORT FOR INFECTION AND POSSIBLE REMOVAL.
[2019-10-16 07:14] LABS: HEMATOCRIT 27.9 % (42.0-52.0); HEMOGLOBIN 9.1 g/dl (13.5-18.0); MEAN CORPUSCULAR HEMOGLOBIN 32 pg (27.0-31.0)
[2019-10-16 07:22] LABS: CALCIUM 7.7 mg/dL (8.4-10.2); CREATININE, serum 0.88 (0.66-1.25); MAGNESIUM 2.1 mg/dL (1.6-2.3); POTASSIUM 3.8 mmol/L (3.4-5.0)
[2019-10-16 10:47] LABS: INR 1.9 (0.8-3.0); PROTHROMBIN TIME 21.1 SECONDS (9.7-12.8)
--- NOTE | 2019-10-16 13:25 | NUR ---
Dr. Florence would like Elizabeth held for 48hr prior to port removal. Pt will be ready for port removal 10/19/19. Pt is not complaining of any back pain, but now abdominal pain that is sharp and sudden. MRI will take place tomorrow d/t tech no being available today. Port removal Tuesday. No further concerns at this time.
--- NOTE | 2019-10-16 16:29 | NUR ---
PT worked with the patient today and are recommending home if able. The patient walked 4 feet and PT noted that the patient was quite weak and was a high fall risk. SW met with the patient and his , Ratna, to discuss this and post-acute rehab. The patient and Ratna report that they would like to see how he continues to do while here. The patient reports that he would not want to go to a snf again. His reports that she would be open to it, if needed and recommended. SW to continue to follow.
[2019-10-16 17:24] VITALS: BP 120/57; PULSE 65; TEMP 98.7
--- NOTE | 2019-10-16 19:10 | NUR ---
Report given to LOBO Holley.
--- NOTE | 2019-10-16 19:15 | NUR ---
Received report from Annmarie. Seen patient awake, lying in bed. Patient's at the bedside. Reports he had a bowel movement and that helped lessen his pain. Port at right chest is clean, dry and intact. Still with wheezes exp.
[2019-10-16 19:42] VITALS: BP 123/60; PULSE 65; TEMP 97.8
[2019-10-16 23:56] VITALS: BP 132/68; PULSE 70; TEMP 97.9
[2019-10-17 04:25] VITALS: BP 120/55; PULSE 69; TEMP 98.3
--- NOTE | 2019-10-17 06:15 | NUR ---
Patient still has complains of abdominal and back pain. Dilaudid PRN given. Port was flushed with saline. Backflow noted. No other complains made aside from pain. Will endorse to day shift nurse.
[2019-10-17 07:23] VITALS: BP 135/72; PULSE 80; TEMP 98.1
[2019-10-17 11:16] VITALS: BP 109/72; PULSE 65; TEMP 97.8
[2019-10-17 12:03] LABS: MAGNESIUM 1.8 mg/dL (1.6-2.3); POTASSIUM 3.5 mmol/L (3.4-5.0)
[2019-10-17 16:23] VITALS: BP 103/50; PULSE 66; TEMP 98.1
--- NOTE | 2019-10-17 19:11 | NUR ---
REPORT GIVEN TO LOBO BO.
[2019-10-17 20:12] VITALS: BP 125/79; PULSE 76; TEMP 97.5
[2019-10-17 23:46] VITALS: BP 124/82; PULSE 60; TEMP 98.1
[2019-10-18] VITALS (11 sets, daily range): BP systolic 101–124; BP diastolic 40–69; PULSE 59–73; TEMP 97.5–98.5
--- NOTE | 2019-10-18 05:55 | NUR ---
Patient has had a restful night with no complaints. He has been up to the restroom three times and has had small, loose bowel movements each time.
[2019-10-18 07:19] LABS: BASO % 0.3 % (0.0-2.0); EOS # 0.4 (0.0-0.7); EOS % 5.4 % (0-4.0); GRAN # 4.8 (1.4-6.5); GRAN % 70.1 % (42.2-75.2); LYMPH # 1.1 (1.2-3.4); LYMPH % 15.8 % (20.0-51.0); MEAN CELL VOLUME 99 fl (80.0-100.0); MEAN CORPUSCULAR HGB CONC 33 g/dl (33.0-37.0); MEAN PLATELET VOLUME 9.1 fl (7.4-10.4); MONO # 0.5 (0.1-0.6); PLATELET COUNT 173 K/mm3 (130-400); RED BLOOD COUNT 2.82 M/mm3 (4.20-5.60)
[2019-10-18 07:30] LABS: CALCIUM 7.8 mg/dL (8.4-10.2); CREATININE, serum 0.9 (0.66-1.25); MAGNESIUM 1.8 mg/dL (1.6-2.3); POTASSIUM 3.3 mmol/L (3.4-5.0)
[2019-10-18 07:31] LABS: HEMATOCRIT 27.9 % (42.0-52.0); HEMOGLOBIN 9.2 g/dl (13.5-18.0); MEAN CORPUSCULAR HEMOGLOBIN 33 pg (27.0-31.0)
--- NOTE | 2019-10-18 08:06 | NUR ---
EMANI NOTE: PT states abd pain 11/22 mor to LUQ cramping. NPO since midnight. on CPAP, transfered to baseline 3 l NC. unaboured at rest with moderate SOB with activity. AOX4. Dilaudid given. continent. loose small BM yellow this AM, laxatives held.
--- NOTE | 2019-10-18 10:12 | NUR ---
The patient's , Ratna, approached SW to follow up about home vs post-acute rehab. Ratna reports that the patient has been doing better with therapy here and that she feels comfortable with him returning back home with her. She states that they have all the equipment the patient needs and that the patient gets around well at home. SW to continue to follow.
--- NOTE | 2019-10-18 20:40 | NUR ---
At time of assessment, patient is resting in bed with home CPAP in use. He is alert and oriented, lung sounds diminished at bases with expiratory wheezes in upper lobes bilaterally, heart sounds normal/regular. Patient complains of pain 7/10 in abdomen and pain medications are administered at this time. He has 2+ pitting edema in his lower extremities. was at bedside until 8pm. No new concerns at this time. Patient will be NPO at midnight and is aware of this. Will continue to monitor.
[2019-10-19 00:01] VITALS: BP 109/55; PULSE 62; TEMP 98
[2019-10-19 04:31] VITALS: BP 118/67; PULSE 60; TEMP 98
--- NOTE | 2019-10-19 05:30 | NUR ---
EKG COPY GIVEN TO RN
--- NOTE | 2019-10-19 05:38 | NUR ---
EKG report received at this time claiming ST elevation, possible right ventricular conduction delay and "ACUTE AR". Patient is not having chest pain and vital signs are stable. Physician Buchanan notified. Will continue to monitor.
[2019-10-19 07:39] LABS: BASO % 0.4 % (0.0-2.0); EOS # 0.4 (0.0-0.7); EOS % 5.7 % (0-4.0); GRAN # 4.4 (1.4-6.5); GRAN % 64.4 % (42.2-75.2); HEMOGLOBIN 10.1 g/dl (13.5-18.0); LYMPH # 1.5 (1.2-3.4); LYMPH % 21.3 % (20.0-51.0); MEAN CELL VOLUME 97 fl (80.0-100.0); MEAN CORPUSCULAR HEMOGLOBIN 32 pg (27.0-31.0); MEAN CORPUSCULAR HGB CONC 33 g/dl (33.0-37.0); MEAN PLATELET VOLUME 9.2 fl (7.4-10.4); MONO # 0.5 (0.1-0.6); MONO % 7.6 % (1.7-9.3); PLATELET COUNT 198 K/mm3 (130-400); RED BLOOD COUNT 3.16 M/mm3 (4.20-5.60)
[2019-10-19 07:44] LABS: HEMATOCRIT 30.5 % (42.0-52.0)
[2019-10-19 07:48] LABS: INR 1.3 (0.8-3.0); PROTHROMBIN TIME 14.9 SECONDS (9.7-12.8)
[2019-10-19 07:51] LABS: ALBUMIN 3.1 gm/dL (3.5-5.0); BILIRUBIN,TOTAL 0.5 mg/dL (0.0-1.0); CALCIUM 8.1 mg/dL (8.4-10.2); CREATININE, serum 0.89 (0.66-1.25); POTASSIUM 3.6 mmol/L (3.4-5.0); TOTAL PROTEIN 6.5 gm/dL (6.4-8.2)
[2019-10-19 08:00] VITALS: BP 103/46; PULSE 66; TEMP 98.1
[2019-10-19 12:01] VITALS: BP 158/84; PULSE 68; TEMP 97.9
--- NOTE | 2019-10-19 14:43 | NUR ---
The patient is to transfer to [facility] today, 10/18. No additional needs at this time.
--- NOTE | 2019-10-19 16:36 | NUR ---
Patient is alert and oriented. complain of abd pain. patient had a DARIEN, T-SPINE MRI and PORTCATH was removed because site was positice for Staph. On pacemaker - VPaced. Patient was NPO for all this procedure. 1 assist to ambulate. Lung sound is diminished. 3L of O2. Patient was transferred to [facility] icu/surgical Unit through [facility] by [facility]. Report give to LOBO Kowalski [phone]. Spine MRI Showed Epidural Abscess on T9-T10.
== END 2019-10-19 15:00 | disposition short-term general hospital (02) | DRG 95 ==
LOC: COL.ER 00:37 → MEDICAL 05:37
PROVIDERS: Emergency Medicine; Nurse Practitioner Family; Physician Assistant; Student in an Organized Health Care Education/Training Program; Surgery; ADMIT Hospitalist
PROC: 02PY33Z Removal of Infusion Device from Great Vessel, Percutaneous Approach (ICD-10-PCS; 2019-10-19)
PROC: 0JPT0WZ Removal of Totally Implantable Vascular Access Device from Trunk Subcutaneous Tissue and Fascia, Open Approach (ICD-10-PCS; principal; 2019-10-19 13:00)
DX: G06.1 Intraspinal abscess and granuloma (principal); R78.81 Bacteremia; I47.2 Ventricular tachycardia; N17.9 Acute kidney failure, unspecified; N39.0 Urinary tract infection, site not specified; J96.11 Chronic respiratory failure with hypoxia; I42.0 Dilated cardiomyopathy; C85.90 Non-Hodgkin lymphoma, unspecified, unspecified site; T82.7XXA Infection and inflammatory reaction due to other cardiac and vascular devices, implants and grafts, initial encounter; B95.7 Other staphylococcus as the cause of diseases classified elsewhere; E87.6 Hypokalemia; D64.9 Anemia, unspecified; J84.10 Pulmonary fibrosis, unspecified; K59.00 Constipation, unspecified; I10 Essential (primary) hypertension; I95.9 Hypotension, unspecified; E78.5 Hyperlipidemia, unspecified; Z95.810 Presence of automatic (implantable) cardiac defibrillator; I48.0 Paroxysmal atrial fibrillation; Z79.01 Long term (current) use of anticoagulants; I25.10 Atherosclerotic heart disease of native coronary artery without angina pectoris; Z85.3 Personal history of malignant neoplasm of breast; G47.33 Obstructive sleep apnea (adult) (pediatric); N40.0 Benign prostatic hyperplasia without lower urinary tract symptoms; E27.8 Other specified disorders of adrenal gland; Z86.73 Personal history of transient ischemic attack (TIA), and cerebral infarction without residual deficits; M81.0 Age-related osteoporosis without current pathological fracture; G62.9 Polyneuropathy, unspecified; R53.81 Other malaise; Z86.711 Personal history of pulmonary embolism; Z87.891 Personal history of nicotine dependence
CPT/HCPCS: 99232-AI; 99233-AI; 99239; A9585; G0378; J0690; J0692; J0696; J1170; J1885; J2405; J2704; J3010; J3370; J7030; J7050

== ENCOUNTER 2020-01-17 09:23 | Inpatient (IN) | payer MEDICARE ==
[~2020-01-17] VITALS: Ht 172.7 cm; Wt 135.6 kg
[2020-01-17] VITALS (426 sets, daily range): BP systolic 90–113; BP diastolic 52–86; PULSE 60–88; TEMP 97.8–98; O2SAT 78–100
[~2020-01-17 09:23] MED LIST changes: +ALDACTONE 25MG25 M1 PO; +VITAMIND3 5000 PO; +ZEBETA 5MG5 MG PO
[2020-01-17 10:47] LABS: INR 1.8 (0.8-3.0); PROTHROMBIN TIME 19.7 SECONDS (9.7-12.8)
[2020-01-17 10:53] LABS: ALANINE AMINOTRANSFERASE 49 U/L (4-49); ALBUMIN 3.1 gm/dL (3.5-5.0); ALKALINE PHOSPHATASE 124 U/L (50-136); ANION GAP 13 mmol/L (7-16); AST,SGOT 179 U/L (15-37); BILIRUBIN,TOTAL 0.6 mg/dL (0.0-1.0); BLOOD UREA NITROGEN 83 mg/dL (9-20); C-REACTIVE PROTEIN 1.5 mg/dL (0.0-0.9); CALCIUM 8.7 mg/dL (8.4-10.2); CARBON DIOXIDE 17 mmol/L (22-30); CHLORIDE 104 mmol/L (98-107); CREATININE, serum 3.19 (0.66-1.25); GLUCOSE 90 mg/dL (74-106); SODIUM 134 mmol/L (137-145); TOTAL PROTEIN 6.4 gm/dL (6.4-8.2)
[2020-01-17 10:57] LABS: POTASSIUM 5.8 mmol/L (3.4-5.0)
[2020-01-17 10:58] LABS: PARTIAL THROMBOPLASTIN TIME 41.7 SECONDS (26.0-37.0)
[2020-01-17 11:03] LABS: TROPONIN-I < 0.012 ng/mL (0.000-0.035)
[2020-01-17 11:11] LABS: BASO % 0.4 % (0.0-2.0); EOS # 0.1 (0.0-0.7); EOS % 1.9 % (0-4.0); GRAN # 5.1 (1.4-6.5); GRAN % 68.7 % (42.2-75.2); LYMPH # 1.6 (1.2-3.4); MEAN CELL VOLUME 103 fl (80.0-100.0); MEAN CORPUSCULAR HGB CONC 33 g/dl (33.0-37.0); MEAN PLATELET VOLUME 10.3 fl (7.4-10.4); MONO # 0.5 (0.1-0.6); MONO % 6.5 % (1.7-9.3); PLATELET COUNT 158 K/mm3 (130-400); RED BLOOD COUNT 2.81 M/mm3 (4.20-5.60); REDCELL DISTRIBUTION WIDTH-CV 14.3 % (11.5-14.5)
[2020-01-17 11:14] LABS: HEMOGLOBIN 9.5 g/dl (13.5-18.0); MEAN CORPUSCULAR HEMOGLOBIN 34 pg (27.0-31.0)
--- NOTE | 2020-01-17 13:15 | NUR ---
Admit to ICU room 4 acc by ED RN. ED monitor shows SBP 70s cuff changed to FA serial BP initiated at q15min SBP now mid 90s. ,Ratna,given update will be in to visit. Pt denies pain/nausea/shortness of breath/dizziness. Oriented to room and call system. Linux Support Engineer in to eval. Consults notified.
[2020-01-17] MEDS ORDERED: COZAAR 50MG50 MG/TAB PO (15:12)
[2020-01-17] MEDS ORDERED: K-TAB20 PO (15:14)
[2020-01-17] MEDS ORDERED: DOXYCYCLINE HY100 MG PO (15:17)
--- NOTE | 2020-01-17 18:26 | NUR ---
factory supervisor notified of plan for colonoscopy tomorrow.
--- NOTE | 2020-01-17 18:27 | NUR ---
100% Clear liquid supper consumed. No swallowing difficulty or nausea. 2small stools this afternoon-no blood in either. SBP has remained above 90 throughout shift. NS infusing. Pt has been using call light appropriately. Aware of upcoming procedure and tonight's prep.
[2020-01-17 20:42] LABS: HEMATOCRIT 26.5 % (42.0-52.0); HEMOGLOBIN 8.8 g/dl (13.5-18.0)
[2020-01-17 20:54] LABS: CALCIUM 8.2 mg/dL (8.4-10.2); CREATININE, serum 2.4 (0.66-1.25); POTASSIUM 5.2 mmol/L (3.4-5.0)
[2020-01-18] VITALS (512 sets, daily range): BP systolic 91–108; BP diastolic 36–67; PULSE 59–70; TEMP 97.4–98.9; O2SAT 85–100
[2020-01-18 05:30] LABS: BASO % 0.3 % (0.0-2.0); EOS # 0.2 (0.0-0.7); EOS % 2.8 % (0-4.0); GRAN # 5.5 (1.4-6.5); GRAN % 71.6 % (42.2-75.2); HEMATOCRIT 26.4 % (42.0-52.0); HEMOGLOBIN 8.6 g/dl (13.5-18.0); LYMPH # 1.5 (1.2-3.4); MEAN CELL VOLUME 104 fl (80.0-100.0); MEAN CORPUSCULAR HEMOGLOBIN 34 pg (27.0-31.0); MEAN CORPUSCULAR HGB CONC 33 g/dl (33.0-37.0); MONO # 0.5 (0.1-0.6); MONO % 5.9 % (1.7-9.3); PLATELET COUNT 132 K/mm3 (130-400); RED BLOOD COUNT 2.54 M/mm3 (4.20-5.60); REDCELL DISTRIBUTION WIDTH-CV 14.5 % (11.5-14.5)
[2020-01-18 05:37] LABS: INR 1.4 (0.8-3.0); PROTHROMBIN TIME 15.4 SECONDS (9.7-12.8)
[2020-01-18 05:40] LABS: ALBUMIN 2.7 gm/dL (3.5-5.0); BILIRUBIN,TOTAL 0.5 mg/dL (0.0-1.0); CREATININE, serum 2.14 (0.66-1.25); MAGNESIUM 1.9 mg/dL (1.6-2.3); TOTAL PROTEIN 5.5 gm/dL (6.4-8.2)
--- NOTE | 2020-01-18 16:03 | NUR ---
Pt arrived to floor at this time with PACU staff. Able to transfer over to bed with slide board and assistance of 4. Has urge to have stool, placed on bed barbour and has vitals stable, will continue to monitor.
[2020-01-18] MEDS ORDERED: NATURAL MAGNES200 MG PO (16:31)
--- NOTE | 2020-01-18 17:09 | NUR ---
Solution Engineer met with patient and patient's to discuss discharge planning. Patient lives with his , Ratna in [place] and sees Dr. Mercado for primary care. Patient obtains medications from [facility] in and has a walker, rollator, and wheelchair. Patient also has home oxygen through [facility]. Patient is mostly independent with ADLS but has had some weakness recently in his legs. Patient plans to return home at discharge. Patient's would like to look into Home Health and would like a referral sent to [facility]. SW faxed referral and will continue to follow.
--- NOTE | 2020-01-18 18:08 | NUR ---
Pt has done well since arriving. VSS. was at bedside but left for the day. Pt did have one incontinent episode of stool in room waiting for staff to arrive. Pt taking CL well in small amount. Denies needs, will give bedside shift report to nightshift nurse who will resume care.
--- NOTE | 2020-01-18 20:30 | NUR ---
Pt. sitting up in bed at this time. Pt. is A&OX3. assessment complete. PICC to rt. upper arm patent, IV fluids infusing per orders. Pt. denies pain or other needs, call light within reach.
[2020-01-19] VITALS (94 sets, daily range): BP systolic 72–108; BP diastolic 36–60; PULSE 59–84; TEMP 97.4–98.7; O2SAT 95–100
[2020-01-19 06:45] LABS: BASO % 0.1 % (0.0-2.0); EOS # 0.2 (0.0-0.7); EOS % 2.2 % (0-4.0); GRAN % 71.2 % (42.2-75.2); LYMPH # 1.4 (1.2-3.4); LYMPH % 19.4 % (20.0-51.0); MEAN CELL VOLUME 105 fl (80.0-100.0); MEAN CORPUSCULAR HGB CONC 33 g/dl (33.0-37.0); MEAN PLATELET VOLUME 10.7 fl (7.4-10.4); MONO # 0.5 (0.1-0.6); MONO % 6.8 % (1.7-9.3); PLATELET COUNT 134 K/mm3 (130-400); RED BLOOD COUNT 2.42 M/mm3 (4.20-5.60); REDCELL DISTRIBUTION WIDTH-CV 14.6 % (11.5-14.5)
--- NOTE | 2020-01-19 07:00 | NUR ---
Bedside shift report received from Ani Limon. pt in bed with CPAP on denies needs, will continue to monitor.
[2020-01-19 07:03] LABS: HEMATOCRIT 25.5 % (42.0-52.0); HEMOGLOBIN 8.4 g/dl (13.5-18.0); MEAN CORPUSCULAR HEMOGLOBIN 35 pg (27.0-31.0)
[2020-01-19 07:22] LABS: CALCIUM 7.8 mg/dL (8.4-10.2); CREATININE, serum 1.78 (0.66-1.25); MAGNESIUM 1.9 mg/dL (1.6-2.3); POTASSIUM 4.3 mmol/L (3.4-5.0)
--- NOTE | 2020-01-19 08:01 | NUR ---
Assessment charted. Pt taking PO well, tolerating clears and would like to advance. PICC to TANYA, flushes and good blood return. Denies needs or pain , wants to take nap after breakfast, will continue to monitor.
[2020-01-19 16:55] LABS: HEMOGLOBIN 8.4 g/dl (13.5-18.0)
--- NOTE | 2020-01-19 18:28 | NUR ---
Pt BP low today, trending down this evening, called Pothuru and bolus orders received and implement. Pt feels well, has been up often to bathroom for loose stools in small to moderate amount. Pt denies needs, denies pain. Will give bedside shift report to nightshift nurse who will resume care.
--- NOTE | 2020-01-19 19:07 | NUR ---
Allisone to see pt at this time, continues to have hypotension, will bolus again per orders, nightshift to resume care.
--- NOTE | 2020-01-19 19:35 | NUR ---
Pt. laying in bed at this time. Pt. is A&OX3, assessment complete. PICC line to rt. upper arm patent. IV bolus infusing at this time. Upon shift report, pt. started having low BP's, 70's/ 40's. Hilary was notifed by LOBO Amaya. New orders received. Plan is to transfer to ICU.
[2020-01-19 19:40] LABS: BASO % 0.1 % (0.0-2.0); EOS # 0.2 (0.0-0.7); EOS % 2.1 % (0-4.0); GRAN # 5.3 (1.4-6.5); GRAN % 69.5 % (42.2-75.2); LYMPH # 1.6 (1.2-3.4); LYMPH % 21.4 % (20.0-51.0); MEAN CELL VOLUME 106 fl (80.0-100.0); MEAN CORPUSCULAR HGB CONC 32 g/dl (33.0-37.0); MEAN PLATELET VOLUME 10.4 fl (7.4-10.4); MONO # 0.5 (0.1-0.6); MONO % 6.6 % (1.7-9.3); PLATELET COUNT 115 K/mm3 (130-400); RED BLOOD COUNT 2.39 M/mm3 (4.20-5.60); REDCELL DISTRIBUTION WIDTH-CV 14.6 % (11.5-14.5)
[2020-01-19 19:44] LABS: CALCIUM 7.7 mg/dL (8.4-10.2); CREATININE, serum 1.61 (0.66-1.25); MAGNESIUM 1.8 mg/dL (1.6-2.3); POTASSIUM 4.3 mmol/L (3.4-5.0)
[2020-01-19 19:46] LABS: HEMATOCRIT 25.3 % (42.0-52.0); HEMOGLOBIN 8.1 g/dl (13.5-18.0); MEAN CORPUSCULAR HEMOGLOBIN 34 pg (27.0-31.0)
--- NOTE | 2020-01-19 20:15 | NUR ---
Patient arrived to the unit via wheelchair. Alert and oriented and cooperative with staff. Attached to all monitors. VS stable will continue to monitor.
[2020-01-19 20:19] LABS: TROPONIN-I < 0.012 ng/mL (0.000-0.035)
--- NOTE | 2020-01-19 20:30 | NUR ---
Pt. transfered to the ICU at this time.
[2020-01-20] VITALS (265 sets, daily range): BP systolic 92–119; BP diastolic 44–80; PULSE 59–91; TEMP 97–98.1; O2SAT 89–100
[2020-01-20 05:03] LABS: BASO % 0.1 % (0.0-2.0); EOS # 0.2 (0.0-0.7); EOS % 3.2 % (0-4.0); GRAN # 4.7 (1.4-6.5); GRAN % 68.6 % (42.2-75.2); LYMPH # 1.4 (1.2-3.4); LYMPH % 20.9 % (20.0-51.0); MEAN CELL VOLUME 106 fl (80.0-100.0); MEAN CORPUSCULAR HGB CONC 32 g/dl (33.0-37.0); MEAN PLATELET VOLUME 9.9 fl (7.4-10.4); MONO # 0.5 (0.1-0.6); MONO % 7.1 % (1.7-9.3); PLATELET COUNT 112 K/mm3 (130-400); RED BLOOD COUNT 2.31 M/mm3 (4.20-5.60); REDCELL DISTRIBUTION WIDTH-CV 14.6 % (11.5-14.5)
[2020-01-20 05:07] LABS: HEMATOCRIT 24.4 % (42.0-52.0); HEMOGLOBIN 7.9 g/dl (13.5-18.0); INR 1.3 (0.8-3.0); MEAN CORPUSCULAR HEMOGLOBIN 34 pg (27.0-31.0); PROTHROMBIN TIME 14.7 SECONDS (9.7-12.8)
[2020-01-20 05:15] LABS: ALBUMIN 2.3 gm/dL (3.5-5.0); BILIRUBIN,TOTAL 0.5 mg/dL (0.0-1.0); CALCIUM 7.5 mg/dL (8.4-10.2); CREATININE, serum 1.56 (0.66-1.25); POTASSIUM 3.9 mmol/L (3.4-5.0)
[2020-01-20 07:47] LABS: COLLECTION METHOD CLEAN CATCH
[2020-01-20 07:56] LABS: MUCOUS Present /lpf; PH 5 (5-8); SQUAMOUS EPITHELIAL None Seen /hpf; URINE APPEARANCE Clear; URINE BACTERIA None Seen /hpf; URINE BILIRUBIN Negative (NEGATIVE); URINE BLOOD Negative (NEGATIVE); URINE COLOR Yellow; URINE GLUCOSE Negative (NEGATIVE); URINE KETONE Negative (NEGATIVE); URINE LEUKOCYTE ESTERASE Negative (NEGATIVE); URINE NITRATE Negative (NEGATIVE); URINE PROTEIN(semi-quant) Negative (NEGATIVE); URINE RBC 0-2 /hpf; URINE UROBILINOGEN Negative (NEGATIVE)
--- NOTE | 2020-01-20 11:18 | NUR ---
Pt transferred to room 348, report called to LOBO Ellis prior to transfer. Pt alert and oriented at time of tansfer. All belonings sent with pt. Pt assisted via wheelchair and at side. Pt denies further needs at this time.
--- NOTE | 2020-01-20 14:37 | NUR ---
Patient resting, he reports not getting much sleep last night. His remains at bedside. He tolerated general diet for lunch. He deneis pain. Minimal needs. will monitor.
[2020-01-20 16:53] LABS: HEMATOCRIT 25.6 % (42.0-52.0); HEMOGLOBIN 8.3 g/dl (13.5-18.0)
--- NOTE | 2020-01-20 17:56 | NUR ---
Patient sitting up in chair eating dinner. H&H stable at 8.3. Blood pressure high 90s, will continue to montior.
--- NOTE | 2020-01-20 21:30 | NUR ---
Pt. laying in bed at this time. Pt. is A&OX3, assessment complete. PICC to rt. upper arm patent. Pt. denies pain or other needs, call light within reach.
[2020-01-21] VITALS (11 sets, daily range): BP systolic 91–122; BP diastolic 43–74; PULSE 59–95; TEMP 97.3–98.1
[2020-01-21 06:47] LABS: ALBUMIN 2.3 gm/dL (3.5-5.0); BILIRUBIN,TOTAL 0.4 mg/dL (0.0-1.0); CALCIUM 7.7 mg/dL (8.4-10.2); CREATININE, serum 1.59 (0.66-1.25); POTASSIUM 3.8 mmol/L (3.4-5.0); TOTAL PROTEIN 4.8 gm/dL (6.4-8.2)
[2020-01-21 06:49] LABS: BASO % 0.3 % (0.0-2.0); EOS # 0.3 (0.0-0.7); EOS % 3.6 % (0-4.0); GRAN # 4.6 (1.4-6.5); GRAN % 67.5 % (42.2-75.2); LYMPH # 1.4 (1.2-3.4); LYMPH % 20.8 % (20.0-51.0); MEAN CELL VOLUME 105 fl (80.0-100.0); MEAN CORPUSCULAR HGB CONC 33 g/dl (33.0-37.0); MEAN PLATELET VOLUME 10.4 fl (7.4-10.4); MONO # 0.5 (0.1-0.6); MONO % 7.7 % (1.7-9.3); PLATELET COUNT 104 K/mm3 (130-400); RED BLOOD COUNT 2.26 M/mm3 (4.20-5.60); REDCELL DISTRIBUTION WIDTH-CV 14.5 % (11.5-14.5)
[2020-01-21 07:03] LABS: HEMATOCRIT 23.8 % (42.0-52.0); HEMOGLOBIN 7.8 g/dl (13.5-18.0); MEAN CORPUSCULAR HEMOGLOBIN 35 pg (27.0-31.0)
[2020-01-21 07:24] LABS: INR 1.2 (0.8-3.0); PROTHROMBIN TIME 13.9 SECONDS (9.7-12.8)
--- NOTE | 2020-01-21 11:35 | NUR ---
Patient sitting up in chair, at bedside. Hospitalist rounded this am, lasix resumed. Blood pressures taken, in both legs and right arm for hospitalsit to reviewed. Will closely monitor pressures. I spoke with greenhouse transplanter Dilcia-she agreed we should hold off on removing picc line at this time. She did speak with to let him know we would not be removing Picc line until this was discussed with MANJULA Newsome, but I would be monitoring blood pressures in legs & arm. Reasoning for removing Picc line was to monitor blood pressures in upper arm. Dilcia & I both looked for peripheral line per Doctor Gill request & no veins visible to try & start new Iv. Patient has restricted extreimity & alot of brusing making minimal assess. Patient continues to be steady on his feet, ambulating to bathroom with walker. He deneis pain. On o2. dyspnea with exertion. Scds ble. edema noted. Will vianey.
--- NOTE | 2020-01-21 16:05 | NUR ---
Patient resting in bed. Vital remain stable. Accurate I&O. Minmial needs. Will monitor.
--- NOTE | 2020-01-21 18:14 | NUR ---
Patient continues to do well, with minimal needs. will report off to night nurse
[2020-01-22] VITALS (8 sets, daily range): BP systolic 92–118; BP diastolic 46–97; PULSE 60–71; TEMP 97.3–98.4
--- NOTE | 2020-01-22 02:50 | NUR ---
Patient has rested well throughout the night. Continues on 3L of oxygen via nasal cannula which is baseline for patient. Wears CPAP while asleep. No loose stools noted this shift. BLE edema noted. PICC to TANYA flushes easily. Multiple bruising noted to bilateral arms. 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 Patient requires stand-by assist to ambulate, mainly for help with his oxygen tubing. Patient denies pain. Patient denies any further needs. Will continue to monitor.
[2020-01-22 07:17] LABS: BASO % 0.3 % (0.0-2.0); EOS # 0.3 (0.0-0.7); EOS % 4.7 % (0-4.0); GRAN # 4.6 (1.4-6.5); GRAN % 67.6 % (42.2-75.2); LYMPH # 1.4 (1.2-3.4); LYMPH % 20.2 % (20.0-51.0); MEAN CELL VOLUME 103 fl (80.0-100.0); MEAN CORPUSCULAR HGB CONC 33 g/dl (33.0-37.0); MEAN PLATELET VOLUME 10.7 fl (7.4-10.4); MONO # 0.5 (0.1-0.6); MONO % 6.9 % (1.7-9.3); PLATELET COUNT 113 K/mm3 (130-400); RED BLOOD COUNT 2.45 M/mm3 (4.20-5.60); REDCELL DISTRIBUTION WIDTH-CV 14.3 % (11.5-14.5)
[2020-01-22 07:24] LABS: INR 1.2 (0.8-3.0); PROTHROMBIN TIME 13.9 SECONDS (9.7-12.8)
[2020-01-22 07:30] LABS: HEMATOCRIT 25.2 % (42.0-52.0); HEMOGLOBIN 8.3 g/dl (13.5-18.0); MEAN CORPUSCULAR HEMOGLOBIN 34 pg (27.0-31.0)
[2020-01-22 07:42] LABS: ALBUMIN 2.5 gm/dL (3.5-5.0); BILIRUBIN,TOTAL 0.5 mg/dL (0.0-1.0); CALCIUM 7.8 mg/dL (8.4-10.2); CREATININE, serum 1.73 (0.66-1.25); POTASSIUM 3.7 mmol/L (3.4-5.0); TOTAL PROTEIN 5.3 gm/dL (6.4-8.2)
--- NOTE | 2020-01-22 08:44 | NUR ---
Patient up to recliner. Alert and oriented x 3. Assessment complete. Denies pain at this time. Edema to BLE +2. Generalized edema noted. LUE restriction. PICC to RUE without complications. O2 at 3L via NC. Denies further needs at this time .
--- NOTE | 2020-01-22 08:51 | NUR ---
Reweighed patient on standing scale due to weight variance
[2020-01-22] MEDS ORDERED: ZEBETA 5MG5 MG PO (09:27)
[2020-01-22] MEDS ORDERED: K-TAB10 PO (09:29)
[2020-01-22] MEDS ORDERED: LASIX 20MG TABL20 MG PO (09:29)
[2020-01-22] MEDS ORDERED: NEURONTIN100 MG/CAP PO (09:30)
--- NOTE | 2020-01-22 09:30 | NUR ---
Hospitalist and team in to see patient.
--- NOTE | 2020-01-22 10:54 | NUR ---
LAZ contacted Constantino at [facility] to follow up on referral. Constantino reports that they did not receive the referral. LAZ re-faxed the referral to [facility]. Constantino reports that they are able to accept the patient for services and will reach out to him and family to schedule a time to start care. LAZ met with the patient and updated him on the above information. LAZ attempted to contact the patient's , Ratna, to update. LAZ left her a voicemail. The patient is to discharge back home with his today, 01/21, with home health services for correction/PT/OT through [facility]. LAZ faxed the d/c orders to [facility]. LAZ presented and read the IM form outloud to the patient. The patient verbalized understanding and gave LAZ approval to sign the form on his behalf. LAZ provided him with a copy. No additional needs at this time.
--- NOTE | 2020-01-22 11:24 | NUR ---
Contacted Ellen BURTON to verify if PICC line needs discontinued prior to discharge. Notified Mercedez from [facility] for picc line removal
--- NOTE | 2020-01-22 12:24 | NUR ---
First visit from the clam picker. No needs right now.
--- NOTE | 2020-01-22 12:30 | NUR ---
Discharge education provided to patient. Educated on when to call provider and all medication changes. Educated on picc line removal, done by [facility]. All questions answered. Patient denies further needs at this time. Will call when ride is here.
--- NOTE | 2020-01-22 13:30 | NUR ---
Patient out by wheelchair with surgical staff. Continues to deny further needs.
== END 2020-01-22 13:30 | disposition home health service (06) | DRG 393 ==
LOC: COL.ER 09:23 → SURG 12:50 → ICU 12:50 → SURG 01-18 14:00 → ICU 01-19 19:36 → SURG 01-20 11:10
PROVIDERS: Internal Medicine Gastroenterology; Nurse Practitioner Family; Physician Assistant; Student in an Organized Health Care Education/Training Program; ADMIT Internal Medicine
PROC: 02HV33Z Insertion of Infusion Device into Superior Vena Cava, Percutaneous Approach (ICD-10-PCS; 2020-01-17)
PROC: 0DBE8ZZ Excision of Large Intestine, Via Natural or Artificial Opening Endoscopic (ICD-10-PCS; 2020-01-18)
PROC: 0DJ08ZZ Inspection of Upper Intestinal Tract, Via Natural or Artificial Opening Endoscopic (ICD-10-PCS; principal; 2020-01-18 11:45)
PROC: 0DBP8ZZ Excision of Rectum, Via Natural or Artificial Opening Endoscopic (ICD-10-PCS; 2020-01-18 11:45)
DX: D12.7 Benign neoplasm of rectosigmoid junction (principal); K25.4 Chronic or unspecified gastric ulcer with hemorrhage; R57.1 Hypovolemic shock; G06.2 Extradural and subdural abscess, unspecified; K29.31 Chronic superficial gastritis with bleeding; K57.31 Diverticulosis of large intestine without perforation or abscess with bleeding; I42.0 Dilated cardiomyopathy; J96.11 Chronic respiratory failure with hypoxia; Z68.42 Body mass index [BMI] 45.0-49.9, adult; N17.9 Acute kidney failure, unspecified; E87.2 Acidosis; C85.90 Non-Hodgkin lymphoma, unspecified, unspecified site; D62 Acute posthemorrhagic anemia; I95.9 Hypotension, unspecified; I48.0 Paroxysmal atrial fibrillation; I10 Essential (primary) hypertension; I25.10 Atherosclerotic heart disease of native coronary artery without angina pectoris; I48.91 Unspecified atrial fibrillation; G47.33 Obstructive sleep apnea (adult) (pediatric); R13.10 Dysphagia, unspecified; E87.5 Hyperkalemia; E66.01 Morbid (severe) obesity due to excess calories; N40.0 Benign prostatic hyperplasia without lower urinary tract symptoms; E78.5 Hyperlipidemia, unspecified; Z99.81 Dependence on supplemental oxygen; Z79.01 Long term (current) use of anticoagulants; Z79.2 Long term (current) use of antibiotics; Z95.810 Presence of automatic (implantable) cardiac defibrillator; Z96.651 Presence of right artificial knee joint; Z86.711 Personal history of pulmonary embolism; Z86.73 Personal history of transient ischemic attack (TIA), and cerebral infarction without residual deficits; Z85.3 Personal history of malignant neoplasm of breast; Z92.21 Personal history of antineoplastic chemotherapy; Z87.891 Personal history of nicotine dependence
CPT/HCPCS: 99223-AI; 99233-AI; 99239; C1751; C9113; J0610; J2405; J7030; J7050

== ENCOUNTER 2020-02-01 20:17 | Inpatient (IN) | payer MEDICARE ==
[~2020-02-01] VITALS: Ht 172.7 cm; Wt 133.0 kg
[~2020-02-01 20:17] MED LIST changes: +DOXYCYCLINE HY100 MG PO; +K-TAB10 PO; +K-TAB20 PO; +NATURAL MAGNES200 MG PO; +NEURONTIN100 MG/CAP PO
[2020-02-01 22:18] LABS: INR 1.3 (0.8-3.0)
[2020-02-01 22:21] LABS: PARTIAL THROMBOPLASTIN TIME 35.6 SECONDS (26.0-37.0)
[2020-02-01 22:27] LABS: ALANINE AMINOTRANSFERASE 60 U/L (4-49); ALBUMIN 2.6 gm/dL (3.5-5.0); ALKALINE PHOSPHATASE 132 U/L (50-136); ANION GAP 9 mmol/L (7-16); AST,SGOT 217 U/L (15-37); BILIRUBIN,TOTAL 1.1 mg/dL (0.0-1.0); BLOOD UREA NITROGEN 42 mg/dL (9-20); C-REACTIVE PROTEIN 2.4 mg/dL (0.0-0.9); CALCIUM 7.8 mg/dL (8.4-10.2); CARBON DIOXIDE 20 mmol/L (22-30); CHLORIDE 106 mmol/L (98-107); CREATININE, serum 2.16 (0.66-1.25); GLUCOSE 92 mg/dL (74-106); POTASSIUM 3.9 mmol/L (3.4-5.0); SODIUM 135 mmol/L (137-145); TOTAL PROTEIN 5.2 gm/dL (6.4-8.2)
[2020-02-01 22:43] LABS: TROPONIN-I < 0.012 ng/mL (0.000-0.035)
[2020-02-01 22:50] LABS: BASO % 0.3 % (0.0-2.0); EOS # 0.1 (0.0-0.7); EOS % 0.9 % (0-4.0); GRAN # 8.2 (1.4-6.5); GRAN % 78.1 % (42.2-75.2); HEMATOCRIT 28.5 % (42.0-52.0); HEMOGLOBIN 9.6 g/dl (13.5-18.0); LYMPH # 1.6 (1.2-3.4); LYMPH % 15.5 % (20.0-51.0); MEAN CELL VOLUME 103 fl (80.0-100.0); MEAN CORPUSCULAR HEMOGLOBIN 35 pg (27.0-31.0); MEAN CORPUSCULAR HGB CONC 34 g/dl (33.0-37.0); MEAN PLATELET VOLUME 10.4 fl (7.4-10.4); MONO # 0.5 (0.1-0.6); MONO % 4.7 % (1.7-9.3); PLATELET COUNT 110 K/mm3 (130-400); RED BLOOD COUNT 2.78 M/mm3 (4.20-5.60); REDCELL DISTRIBUTION WIDTH-CV 15.8 % (11.5-14.5)
[2020-02-02] VITALS (7 sets, daily range): BP systolic 85–108; BP diastolic 32–81; PULSE 59–62; TEMP 97.4–97.9
--- NOTE | 2020-02-02 05:03 | NUR ---
Patient to the unit at 0130 and assisted into bed. Patient noted to have 4+ pitting edema to bilateral legs and +3 to bilateral arms. Herman wraps applied by Hilary Carpenter to bilateral legs. Left leg was reported to be weeping, but herman wraps are CDI. INT to RAC flushes with no difficulty. Continues on 3L of Oxygen. RT assists patient with CPAP. Patient voids utilizing urinal. Bladder scan shows 0ml on post-void residual. Patient able to have a small bowel movement. Positive on hemoccult. GI to be consulted this morning, as well as cardiology. Strict I&O implemented. Denies any further needs. Will continue to monitor.
--- NOTE | 2020-02-02 06:02 | NUR ---
INT to right AC infiltrated. New 22G placed in right hand. Patient tolerated this well.
[2020-02-02 06:24] LABS: ALBUMIN 2.2 gm/dL (3.5-5.0); BILIRUBIN,TOTAL 0.9 mg/dL (0.0-1.0); CALCIUM 7.5 mg/dL (8.4-10.2); CREATININE, serum 1.87 (0.66-1.25); POTASSIUM 3.8 mmol/L (3.4-5.0); TOTAL PROTEIN 4.6 gm/dL (6.4-8.2)
[2020-02-02 07:04] LABS: BASO % 0.3 % (0.0-2.0); EOS # 0.3 (0.0-0.7); EOS % 2.2 % (0-4.0); GRAN % 66.5 % (42.2-75.2); LYMPH # 3.1 (1.2-3.4); MEAN CELL VOLUME 100 fl (80.0-100.0); MEAN CORPUSCULAR HGB CONC 34 g/dl (33.0-37.0); MEAN PLATELET VOLUME 10.2 fl (7.4-10.4); MONO # 0.6 (0.1-0.6); MONO % 4.7 % (1.7-9.3); PLATELET COUNT 105 K/mm3 (130-400); RED BLOOD COUNT 2.77 M/mm3 (4.20-5.60); REDCELL DISTRIBUTION WIDTH-CV 15.5 % (11.5-14.5)
[2020-02-02 07:05] LABS: HEMATOCRIT 27.8 % (42.0-52.0); HEMOGLOBIN 9.3 g/dl (13.5-18.0); MEAN CORPUSCULAR HEMOGLOBIN 34 pg (27.0-31.0)
--- NOTE | 2020-02-02 08:56 | NUR ---
Fall risk protocol initiated d/t difficulty with ambulation r/t BLE edema.
--- NOTE | 2020-02-02 09:34 | NUR ---
Cain Parra and Abdoulaye notified of consult.
--- NOTE | 2020-02-02 10:20 | NUR ---
Dr Amin here to see patient.
[2020-02-02 14:11] LABS: HEMATOCRIT 26.9 % (42.0-52.0); HEMOGLOBIN 9.1 g/dl (13.5-18.0)
--- NOTE | 2020-02-02 14:59 | NUR ---
Plan: To return home with [phone] in [place]. Assessment: Patient reports that his PCP is Dr. Mercado. Patient reports that he had an appointment yesterday. Patient reports that he obtains medications from [facility] and uses a wheelchair. Patient reports that he uses 3 liters of 02 at home. Patient reports that he has a pacemaker. Patient reports that he is interested in home [facility] care and has used [facility] for snf rehab in the past and is not opposed to using again. Patient reports that his helps with transportation. is also POA. Action: Will continue to follow for additional needs. Educated on community resources.
[2020-02-02 17:24] LABS: FOLATE (FOLIC ACID) 4.7 ng/mL (7.0-31.4)
[2020-02-02 22:01] LABS: HEMATOCRIT 25.2 % (42.0-52.0); HEMOGLOBIN 8.7 g/dl (13.5-18.0)
[2020-02-03] VITALS (7 sets, daily range): BP systolic 80–119; BP diastolic 38–69; PULSE 60–69; TEMP 97.7–98.8
--- NOTE | 2020-02-03 04:55 | NUR ---
Blood pressure noted to be 80/38. Hilary Carpenter APRN notified of hypotension. Will recheck blood pressure before lasix administration this morning. Will continue to monitor blood pressure.
--- NOTE | 2020-02-03 04:56 | NUR ---
Patient has rested well throughout the night. Denies pain. Continues to urinate clear, yellow urine. Up to the bathroom x1 assist. Bilateral edema +3-4 to lower extremities. +3 to bilateral arms. Bilateral bases noted to have fine crackles. INT to right hand fluhes with ease. Utilizes CPAP at night. Tolerates this well. Bilateral legs wrapped with coban. Denies it being too tight. Will continue to monitor patient.
--- NOTE | 2020-02-03 06:20 | NUR ---
Blood pressure 91/48. Scheduled Lasix given per order.
--- NOTE | 2020-02-03 08:59 | NUR ---
Dr Gimenez here to see patient.
--- NOTE | 2020-02-03 09:53 | NUR ---
Patient alert and oriented, answers questions appropriately. See assessment. Heart tones strong and even. Lungs with fine crackles noted in bases, clear in upper lobes. BLE with 3+ edema noted, pulses palpable with doppler. No abdominal pain or discomfort. Normal bowel movement this a.m. No c/o at this time.
[2020-02-03 09:57] LABS: HEMATOCRIT 27.6 % (42.0-52.0); HEMOGLOBIN 9.4 g/dl (13.5-18.0)
[2020-02-03 10:06] LABS: ALBUMIN 2.6 gm/dL (3.5-5.0); CALCIUM 7.9 mg/dL (8.4-10.2); CREATININE, serum 1.82 (0.66-1.25); MAGNESIUM 1.8 mg/dL (1.6-2.3); POTASSIUM 3.6 mmol/L (3.4-5.0); TOTAL PROTEIN 5.4 gm/dL (6.4-8.2)
--- NOTE | 2020-02-03 13:36 | NUR ---
Dr Amin here to see patient.
--- NOTE | 2020-02-04 03:49 | NUR ---
Patient has rested well throughout the night. Voiding well. Clear, yellow urine noted. Bilateral lower extremity edema noted. Bilateral legs wrapped with coban. Patient has tolerated this well tonight. Blood pressure remains hypotensive. Utilizes walker to ambulate to the restroom. 1 assist needed from staff. Medications given whole. Had one small slightly blood bowel movement this shift. Scheduled for bilateral upper arm ultrasound today. Will continue to monitor.
[2020-02-04 04:00] VITALS: BP 88/42; PULSE 59; TEMP 97.8
[2020-02-04 07:44] VITALS: BP 87/43; PULSE 69; TEMP 97.8
--- NOTE | 2020-02-04 08:00 | NUR ---
Patient resting in bed at this time, alert and oriented, answers questions appropriately. Patient denies pain or needs at this time, call light within reach.
[2020-02-04 09:28] LABS: CALCIUM 7.7 mg/dL (8.4-10.2); CREATININE, serum 1.9 (0.66-1.25); POTASSIUM 3.2 mmol/L (3.4-5.0)
[2020-02-04 09:32] LABS: BASO % 0.2 % (0.0-2.0); EOS # 0.3 (0.0-0.7); EOS % 3.3 % (0-4.0); GRAN # 7.3 (1.4-6.5); GRAN % 76.8 % (42.2-75.2); LYMPH # 1.3 (1.2-3.4); LYMPH % 13.6 % (20.0-51.0); MEAN CELL VOLUME 100 fl (80.0-100.0); MEAN CORPUSCULAR HGB CONC 34 g/dl (33.0-37.0); MEAN PLATELET VOLUME 10.7 fl (7.4-10.4); MONO # 0.5 (0.1-0.6); MONO % 5.7 % (1.7-9.3); PLATELET COUNT 101 K/mm3 (130-400); RED BLOOD COUNT 2.69 M/mm3 (4.20-5.60); REDCELL DISTRIBUTION WIDTH-CV 15.6 % (11.5-14.5)
[2020-02-04 09:42] LABS: HEMOGLOBIN 9.2 g/dl (13.5-18.0); MEAN CORPUSCULAR HEMOGLOBIN 34 pg (27.0-31.0)
--- NOTE | 2020-02-04 10:53 | NUR ---
Mrp Controller contacted Constantino with [facility] to confirm services for the patient. Constantino reports they currently provide assisted services. They did a speech eval and PT eval but have not continued those services. Constantino states they will not need new orders if the patient is obs status at discharge. Will continue to monitor.
--- NOTE | 2020-02-04 11:00 | NUR ---
Supervisor Game Farm attended clinical rounds with the team. After rounds, SW met with the patient to revisit the discharge plan. The patient's plan is to return home with [facility]. Will continue to monitor.
[2020-02-04 11:16] VITALS: BP 115/63; PULSE 84; TEMP 97.9
--- NOTE | 2020-02-04 15:08 | NUR ---
Dressing to sore on dorsal aspect of left foot was changed per order, small amount of serosanguinous drainage was noted on the dressing. Coban wraps to BLE replaced per order and patient comfort. There is some edema present with wraps off, patient reports that it is much reduced from what it was prior to wrapping. Patient denies further needs at this time, call light within reach.
--- NOTE | 2020-02-04 15:38 | NUR ---
MANAGER SCHOOL reported that patient was up to the bathroom with 1x assist, walker, and gait belt. While returning to bed patient stated that his right leg felt weak and would not support him. He said he was unable to turn to sit on the bed and needed to sit right away before he fell. Patient was assisted to sit on the floor by MANAGER SCHOOL using her leg and foot to guide him in a slow, intentional, controlled movement. Patient was assisted out of the floor with a no lift and sling. VS upon returning him to bed were WNL. Event was reported to patient's , hospitalist, charge nurse, and sales floor associate. Patient denied pain or discomfort related to the fall and no changes in skin integrity are noted. Call light within reach.
[2020-02-04 15:44] VITALS: BP 116/62; PULSE 89; TEMP 97.8
--- NOTE | 2020-02-04 19:05 | NUR ---
Report received from LOBO Flores. Pt sitting up in chair with legs elevated. Denies needs at this time. Call light in reach.
[2020-02-04 19:36] VITALS: BP 108/69; PULSE 87; TEMP 98.6
--- NOTE | 2020-02-04 21:22 | NUR ---
Assessment complete. Pt asleep in bed upon entering room, CPAP in place. Denies pain while lying in bed, reports pain to left foot when touched. Generalized edema and bruising noted. +2 edema BLE. Sore covered with Mepilex dressing on top of left foot. Skin on left great toe black. Bilateral legs wrapped in Coban. Pt reports discomfort in legs from texture of coban cutting into skin. This RN removed coban wrap to BLE and replaced with CUBA hose. Feet elevated on a pillow. INT to right upper arm clean, dry, intact, flushes easily. Call light in reach. Will continue to monitor.
[2020-02-04 23:06] VITALS: BP 99/44; PULSE 70; TEMP 97.5
[2020-02-05 03:29] VITALS: BP 96/35; PULSE 61; TEMP 98
[2020-02-05 07:20] VITALS: BP 95/43; PULSE 61; TEMP 97.7
--- NOTE | 2020-02-05 07:28 | NUR ---
Pt resting in bed at this time. Slept throughout night. No complaints of pain. Coban wrap to BLE removed at pt's request. SCDs placed on BLE and elevated on pillow.
[2020-02-05 08:52] LABS: BASO % 0.3 % (0.0-2.0); EOS # 0.4 (0.0-0.7); EOS % 4.2 % (0-4.0); GRAN # 6.5 (1.4-6.5); GRAN % 69.5 % (42.2-75.2); LYMPH # 1.7 (1.2-3.4); LYMPH % 18.4 % (20.0-51.0); MEAN CELL VOLUME 100 fl (80.0-100.0); MEAN CORPUSCULAR HGB CONC 35 g/dl (33.0-37.0); MEAN PLATELET VOLUME 11.3 fl (7.4-10.4); MONO # 0.7 (0.1-0.6); MONO % 7.2 % (1.7-9.3); PLATELET COUNT 104 K/mm3 (130-400); RED BLOOD COUNT 2.57 M/mm3 (4.20-5.60); REDCELL DISTRIBUTION WIDTH-CV 15.6 % (11.5-14.5)
[2020-02-05 08:54] LABS: HEMATOCRIT 25.7 % (42.0-52.0); HEMOGLOBIN 8.9 g/dl (13.5-18.0); MEAN CORPUSCULAR HEMOGLOBIN 35 pg (27.0-31.0)
[2020-02-05 09:09] LABS: CALCIUM 7.7 mg/dL (8.4-10.2); CREATININE, serum 1.83 (0.66-1.25); POTASSIUM 3.2 mmol/L (3.4-5.0)
[2020-02-05 10:02] LABS: CREATININE, serum 1.83 (0.66-1.25)
[2020-02-05 10:03] LABS: CALCIUM 7.6 mg/dL (8.4-10.2); POTASSIUM 3.2 mmol/L (3.4-5.0)
[2020-02-05 10:11] LABS: ALBUMIN 2.3 gm/dL (3.5-5.0); BILIRUBIN,TOTAL 1.1 mg/dL (0.0-1.0); MAGNESIUM 1.9 mg/dL (1.6-2.3); TOTAL PROTEIN 4.8 gm/dL (6.4-8.2)
--- NOTE | 2020-02-05 10:32 | NUR ---
Initial visit; Patient thanked Business Services Representative for looking in on him and offering God's blessings and to keep him in her prayers.
[2020-02-05 11:28] VITALS: BP 89/44; PULSE 62; TEMP 97.5
[2020-02-05 16:02] VITALS: BP 82/35; PULSE 64; TEMP 97.8
--- NOTE | 2020-02-05 18:29 | NUR ---
Patient resting in bed at this time. Patient has ambulated with walker, gait belt, and 1x assist to bathroom and was up with therapy. Patient denied pain or further needs, call light within reach.
[2020-02-05 19:21] VITALS: BP 99/39; PULSE 66; TEMP 97.7
[2020-02-06] VITALS: BP 82/42; PULSE 67; TEMP 97.9
[2020-02-06 04:00] VITALS: BP 91/31; PULSE 68; TEMP 98.1
--- NOTE | 2020-02-06 06:11 | NUR ---
Patient has rested well throughout the night. Continues to have bilateral lower extremity edema. Ambulates to the restroom with 1 assist from staff. Required assistance from 2nd staff member to get off the toilet tonight. No bloody stool noted this shift. Noted to have good urine output. Continues to recieve IV lasix per physician orders. Will report off to day shift nurse.
[2020-02-06 07:51] VITALS: BP 103/40; PULSE 66; TEMP 97.6
[2020-02-06 07:57] LABS: BASO % 0.4 % (0.0-2.0); EOS # 0.3 (0.0-0.7); EOS % 3.7 % (0-4.0); GRAN # 6.9 (1.4-6.5); GRAN % 74.1 % (42.2-75.2); HEMATOCRIT 27.7 % (42.0-52.0); HEMOGLOBIN 9.5 g/dl (13.5-18.0); LYMPH # 1.4 (1.2-3.4); MEAN CELL VOLUME 99 fl (80.0-100.0); MEAN CORPUSCULAR HEMOGLOBIN 34 pg (27.0-31.0); MEAN CORPUSCULAR HGB CONC 34 g/dl (33.0-37.0); MEAN PLATELET VOLUME 11.1 fl (7.4-10.4); MONO # 0.6 (0.1-0.6); MONO % 6.4 % (1.7-9.3); PLATELET COUNT 105 K/mm3 (130-400); REDCELL DISTRIBUTION WIDTH-CV 15.4 % (11.5-14.5)
[2020-02-06 08:11] LABS: ALBUMIN 2.4 gm/dL (3.5-5.0); BILIRUBIN,TOTAL 1.3 mg/dL (0.0-1.0); CALCIUM 7.6 mg/dL (8.4-10.2); CREATININE, serum 1.79 (0.66-1.25); POTASSIUM 3.5 mmol/L (3.4-5.0); TOTAL PROTEIN 5.1 gm/dL (6.4-8.2)
--- NOTE | 2020-02-06 10:16 | NUR ---
Follow-up; Patient thanked for greeting him and offering encouragement.
[2020-02-06 12:16] VITALS: BP 112/62; PULSE 73; TEMP 98
[2020-02-06 15:33] VITALS: BP 109/39; PULSE 79; TEMP 98.1
[2020-02-06 20:00] VITALS: BP 98/67; PULSE 68; TEMP 97.8
[2020-02-07] VITALS (7 sets, daily range): BP systolic 85–105; BP diastolic 36–57; PULSE 63–74; TEMP 97.2–98.5
--- NOTE | 2020-02-07 03:13 | NUR ---
Patient has rested well throughout the night. Patient noted to have multiple soft bowel movements this shift. Adequate urine output noted. Clear, yellow urine noted. Patient denies pain. Continues to have +2 pitting edema to bilateral lower extremities. Patient requires 1 assist from staff for toileting and hygiene. Will continue to monitor.
[2020-02-07 07:11] LABS: BASO % 0.3 % (0.0-2.0); EOS # 0.3 (0.0-0.7); GRAN # 6.1 (1.4-6.5); GRAN % 71.7 % (42.2-75.2); LYMPH # 1.5 (1.2-3.4); LYMPH % 17.7 % (20.0-51.0); MEAN CELL VOLUME 100 fl (80.0-100.0); MEAN CORPUSCULAR HGB CONC 34 g/dl (33.0-37.0); MEAN PLATELET VOLUME 10.6 fl (7.4-10.4); MONO # 0.6 (0.1-0.6); MONO % 6.4 % (1.7-9.3); PLATELET COUNT 100 K/mm3 (130-400); RED BLOOD COUNT 2.45 M/mm3 (4.20-5.60); REDCELL DISTRIBUTION WIDTH-CV 15.6 % (11.5-14.5)
[2020-02-07 07:12] LABS: HEMATOCRIT 24.5 % (42.0-52.0); HEMOGLOBIN 8.3 g/dl (13.5-18.0); MEAN CORPUSCULAR HEMOGLOBIN 34 pg (27.0-31.0)
[2020-02-07 07:22] LABS: ALBUMIN 2.1 gm/dL (3.5-5.0); BILIRUBIN,TOTAL 1.2 mg/dL (0.0-1.0); CALCIUM 7.4 mg/dL (8.4-10.2); CREATININE, serum 1.78 (0.66-1.25); MAGNESIUM 1.9 mg/dL (1.6-2.3); POTASSIUM 3.8 mmol/L (3.4-5.0); TOTAL PROTEIN 4.5 gm/dL (6.4-8.2)
--- NOTE | 2020-02-07 09:45 | NUR ---
Patient alert and oriented, answers questions appropriately. See assessment. Lungs decreased in bases, clear in upper lobes. Heart tones strong and even, pulses palpable. Requires oxygen at 3l/nc per baseline. No c/o at this time.
--- NOTE | 2020-02-07 10:09 | NUR ---
Initial visit; Patient and his thanked Dispatcher Refinery for the Reflection over the loud speaker this morning along with looking in on Tu.
--- NOTE | 2020-02-07 11:06 | NUR ---
Motorcycle Police met with the patient and his , Ratna to revisit the discharge plan. The plan is to return home with his 's support and [facility]. PT/OT/Nursing services. The patient is currently on IV antiobiotics. The treatment plan for is to try to transition to oral. SW discussed options in case the patient needs IV antibiotics. The patient's , Ratna states she has administered IV antibiotics in the home after a hospitalization with support for home health. If needed she would be comforable doing that again. The patient and Ratna inquired about obtaining ramp since they have 4 steps to get into the home. SW provide information. SW consulted PT to inquire about the possiblity of working with the patient to practice steps.
--- NOTE | 2020-02-07 11:34 | NUR ---
Sales Audit Clerk spoke with Ernie at [facility] and they will be able to provide PT/OT/Nursing services at discharge. SW faxed updates.
--- NOTE | 2020-02-07 12:10 | NUR ---
Patient assisted back from bathroom, c/o increased SOA and decreased strength. Oximeter on 3l/nc is 94%. Noticable SOA with activity. Required assist x2 to stand from toilet. Returns to bed. States "today is a bad day". No other c/o at this time.
[2020-02-08 03:43] VITALS: BP 94/30; PULSE 69; TEMP 97.9
--- NOTE | 2020-02-08 04:00 | NUR ---
Up to bathroom with walker/assist, weak, needing to take stops on the way to bathroom and sit for a minute-- states his right leg is not strong. Voiding without problems- did have a small stool earlier in the shift. Has been sleeping fair with home c-pap on.
[2020-02-08 06:37] VITALS: BP 106/38
[2020-02-08 06:41] LABS: BASO % 0.4 % (0.0-2.0); EOS # 0.2 (0.0-0.7); EOS % 2.4 % (0-4.0); GRAN # 6.3 (1.4-6.5); GRAN % 74.5 % (42.2-75.2); LYMPH # 1.3 (1.2-3.4); LYMPH % 15.2 % (20.0-51.0); MEAN CELL VOLUME 99 fl (80.0-100.0); MEAN CORPUSCULAR HGB CONC 35 g/dl (33.0-37.0); MEAN PLATELET VOLUME 11.3 fl (7.4-10.4); MONO # 0.6 (0.1-0.6); MONO % 7.1 % (1.7-9.3); PLATELET COUNT 97 K/mm3 (130-400); RED BLOOD COUNT 2.39 M/mm3 (4.20-5.60); REDCELL DISTRIBUTION WIDTH-CV 15.2 % (11.5-14.5)
[2020-02-08 06:44] LABS: HEMATOCRIT 23.7 % (42.0-52.0); HEMOGLOBIN 8.2 g/dl (13.5-18.0); MEAN CORPUSCULAR HEMOGLOBIN 34 pg (27.0-31.0)
--- NOTE | 2020-02-08 06:45 | NUR ---
Sitting up in chair watching TV. Denies pain at this time. Patient says that he had some weakness in his legs this morning when coming from the bathroom to his chair. Has oxygen on at 3L/NC. Edema noted to upper and lower extremities. Patient has area of discoloration on left great toe area that he says has been this way and is getting better. Patient denies any additional needs at this time.
[2020-02-08 06:52] LABS: CALCIUM 7.5 mg/dL (8.4-10.2); CREATININE, serum 1.79 (0.66-1.25); POTASSIUM 3.4 mmol/L (3.4-5.0)
[2020-02-08 07:00] VITALS: BP 95/57; PULSE 74; TEMP 97.5
[2020-02-08] MEDS ORDERED: DEMADEX 20MG20 M1 PO (09:36)
[2020-02-08] MEDS ORDERED: ASPIRIN 81M81 MG/TA2 PO (09:38)
--- NOTE | 2020-02-08 09:47 | NUR ---
Floor Nurse attended clincial rounds with the team. The patient is ready for disharge today. After rounds, LAZ met with the patient and had his Ratna on speaker phone to discuss the discharge plan. The patient continues to be weak. LAZ recommended considering post acute rehab. The patient and the patient's were open to sending a referral to [facility] but no nursing homes for post acute rehab. If the patient does not qualify for [facility] the plan is to go home with [facility]. The patient's is concerned for the patient's discharge due to his low blood pressure. LAZ informed PA and she is to call the patient's . LAZ contacted Denia [facility] Director with referral. If the patient is not accepted to [facility] the patient will go home with [facility]. He refused sending referrals to nursing homes for skilled.
--- NOTE | 2020-02-08 11:19 | NUR ---
Gambling Supervisor met with the patient to present IM form. The patient verbalized understanding and gave SW persmission to sign the form on his behalf. The original was placed in the chart and copy was provided to the patient.
[2020-02-08 11:56] VITALS: BP 113/51; PULSE 78; TEMP 97.2
--- NOTE | 2020-02-08 12:23 | NUR ---
Lying in bed with eyes open trying to eat lunch. Patient asks to have herman wraps taken off legs for a little while as they feel like "tourniquets". Herman wraps removed. Patient denies pain. Patient says that Jane with [facility] was in to talk with him about going to [facility] and he is hoping they are able to find a spot for him. Patient denies any additional needs at this time.
--- NOTE | 2020-02-08 14:39 | NUR ---
The patient was accepted to [facility] and will be discharging there today, 02/07.
[2020-02-08 16:00] VITALS: BP 85/37; PULSE 75; TEMP 97.5
[2020-02-08 16:37] VITALS: BP 84/52
--- NOTE | 2020-02-08 16:39 | NUR ---
Patient BP low. Asymptomatic. Lying in bed at this time. Contacted MICHEAL Zhu, and orders received to not give IV Lasix at this time.
--- NOTE | 2020-02-08 17:10 | NUR ---
Report provided to RHIANNA Kendrick RN. Patient transported to [facility] via bed with all belongings at this time.
== END 2020-02-08 17:15 | DRG 377 ==
LOC: COL.ER 20:17 → SURG 23:08
PROVIDERS: Emergency Medicine; Internal Medicine Pulmonary Disease; Nurse Practitioner Family; Physician Assistant; ADMIT Family Medicine
PROC: 02HV33Z Insertion of Infusion Device into Superior Vena Cava, Percutaneous Approach (ICD-10-PCS; principal; 2020-02-06)
DX: K57.31 Diverticulosis of large intestine without perforation or abscess with bleeding (principal); I50.23 Acute on chronic systolic (congestive) heart failure; N17.9 Acute kidney failure, unspecified; I42.0 Dilated cardiomyopathy; J96.11 Chronic respiratory failure with hypoxia; Z68.42 Body mass index [BMI] 45.0-49.9, adult; E87.6 Hypokalemia; D69.6 Thrombocytopenia, unspecified; D64.9 Anemia, unspecified; E87.70 Fluid overload, unspecified; N40.0 Benign prostatic hyperplasia without lower urinary tract symptoms; G47.33 Obstructive sleep apnea (adult) (pediatric); E66.01 Morbid (severe) obesity due to excess calories; J84.10 Pulmonary fibrosis, unspecified; Z96.651 Presence of right artificial knee joint; I11.0 Hypertensive heart disease with heart failure; I48.0 Paroxysmal atrial fibrillation; Z87.01 Personal history of pneumonia (recurrent); Z86.711 Personal history of pulmonary embolism; Z85.72 Personal history of non-Hodgkin lymphomas; Z86.73 Personal history of transient ischemic attack (TIA), and cerebral infarction without residual deficits; Z85.3 Personal history of malignant neoplasm of breast; Z87.891 Personal history of nicotine dependence; Z79.01 Long term (current) use of anticoagulants; R53.81 Other malaise
CPT/HCPCS: 99231-AI; 99233-AI; 99239; C1751; G0378; J1940; J3475

== ENCOUNTER 2020-02-13 11:24 | Inpatient (IN) | payer MEDICARE ==
[~2020-02-13] VITALS: Ht 172.7 cm; Wt 138.5 kg
[~2020-02-13 11:24] MED LIST changes: +ALBUTEROL0.83 MG/ML IH; +COREG 3.123.125 MG/T PO; +DEMADEX 20MG20 M1 PO; +DESENEX TP; +ZINC OXIDE 28GM TOP
[2020-02-13 11:57] VITALS: BP 110/46; PULSE 95; TEMP 97.5
--- NOTE | 2020-02-13 12:00 | NUR ---
Patient admitted to room 346 from in patient rehab. aware of patient admission. Med rec, inital & 5 page completed. Mercedez with Aiv changed dressing to Picc in [facility]. Patient LUE restricted. Patient refused Scds at this time. Patient tolerated lunch. He denies pain. Patient at bedside. Edi winters.
--- NOTE | 2020-02-13 12:15 | NUR ---
PICC intact right upper arm with sterile dressing change done with insertion site cleansed with chloraprep x 1, chlorhexidine impregnated disk applied, skin prep, stat lock, and tegaderm applied. caps changed and both ports flushed with 10ml normal saline with good blood return noted. no signs or symptoms of IV complications noted. no concerns voiced. re-wrapped with jass to protect catheter.
[2020-02-13 16:27] VITALS: BP 98/43; PULSE 97; TEMP 97.3
--- NOTE | 2020-02-13 16:46 | NUR ---
Patient resting in bed. His at bedside. Patient evening dose of Coreg held & made aware of patient blood pressure. Patient to drink extra liquids vs a Iv fluid bolus. Patient provided with a lemon agdaagux gatorade per verbal order from . Patient denies symptoms of feeling light headed or dizzy.
--- NOTE | 2020-02-13 17:40 | NUR ---
Patient tolerated dinner. He drank gatorade. Just reports feeling full. Denies any other needs.
[2020-02-13 18:58] VITALS: BP 83/39; PULSE 71; TEMP 98.1
--- NOTE | 2020-02-13 20:00 | NUR ---
Report received, assumed care for air compressor engineer. Assessment complete. VS [id number]. A&Ox3-drowsy. Denies pain/nausea. Short of breath with activity. PICC to right upper arm flushes without difficulty. Plan of care discussed for this shift to include HS meds/monitoring VS/calling for questions/concerns. Denies needs. Call light in reach. WIll monitor.
[2020-02-13 23:14] VITALS: BP 76/39; PULSE 81; TEMP 97.7
[2020-02-14] VITALS (8 sets, daily range): BP systolic 79–120; BP diastolic 34–68; PULSE 61–76; TEMP 97.4–98.4
--- NOTE | 2020-02-14 00:45 | NUR ---
Blood pressure rechecked by this nurse manually-90/48
--- NOTE | 2020-02-14 01:57 | NUR ---
Up to bathroom at this time-stand by assist/walker. Denies dizziness/lightheadedness. Denies pain. Will monitor.
--- NOTE | 2020-02-14 05:10 | NUR ---
Manual blood pressure done by this nurse-/42
--- NOTE | 2020-02-14 05:13 | NUR ---
Blood pressure rechecked by this nurse manually-
[2020-02-14 05:20] LABS: BASO # 0.1 (0.0-0.2); BASO % 0.5 % (0.0-2.0); EOS # 0.5 (0.0-0.7); EOS % 3.8 % (0-4.0); GRAN % 74.1 % (42.2-75.2); LYMPH # 1.7 (1.2-3.4); LYMPH % 14.2 % (20.0-51.0); MEAN CELL VOLUME 100 fl (80.0-100.0); MEAN CORPUSCULAR HGB CONC 34 g/dl (33.0-37.0); MEAN PLATELET VOLUME 11.2 fl (7.4-10.4); MONO # 0.8 (0.1-0.6); MONO % 6.7 % (1.7-9.3); PLATELET COUNT 108 K/mm3 (130-400); RED BLOOD COUNT 2.58 M/mm3 (4.20-5.60); REDCELL DISTRIBUTION WIDTH-CV 15.6 % (11.5-14.5)
[2020-02-14 05:26] LABS: HEMATOCRIT 25.8 % (42.0-52.0); HEMOGLOBIN 8.7 g/dl (13.5-18.0); MEAN CORPUSCULAR HEMOGLOBIN 34 pg (27.0-31.0)
[2020-02-14 05:28] LABS: ALBUMIN 2.3 gm/dL (3.5-5.0); BILIRUBIN,TOTAL 1.6 mg/dL (0.0-1.0); CALCIUM 8.3 mg/dL (8.4-10.2); CREATININE, serum 2.07 (0.66-1.25); MAGNESIUM 1.7 mg/dL (1.6-2.3); TOTAL PROTEIN 4.8 gm/dL (6.4-8.2)
--- NOTE | 2020-02-14 09:15 | NUR ---
Patient in bed resting. Alert and oriented x 3. Assessment complete. Denies pain at this time. PICC line to TANYA without complications. Edema to BLE +2 noted, patient states that edema looks better than previous days. Denies further needs at this time.
--- NOTE | 2020-02-14 09:39 | NUR ---
Dr. Brenner in to see patient.
--- NOTE | 2020-02-14 10:05 | NUR ---
Patient educated on Digoxin, no further needs at this time.
--- NOTE | 2020-02-14 10:49 | NUR ---
Follow-up; Patient always smiles and seems to enjoy Screwdown Operator's cheerful acknowledgements.
--- NOTE | 2020-02-14 11:46 | NUR ---
Bookmaker'S Clerk met with patient to discuss discharge planning. Patient was admitted yesterday from [facility]. Patient was at [facility] from 02/08/20-02/13/20. Patient lives in [place] with his , Ratna (ph#[phone]) and sees Dr. Mercado for primary care. Patient obtains medications from [facility] in [place] and has a wheelchair, rollator, front wheeled walker, and home oxygen. Patient is normally on 3 liters and gets his oxygen supplies from [facility]. Patient states he is willing to return to [facility] if needed but would also be interested in returning home with [facility] if he is doing well enough to get home. LAZ collaborated with Denia [facility] Director who will follow patient while he is admitted acute. LAZ contacted patient's , Ratna and left a message. LAZ collaborated with Hospitalist to order PT/OT. LAZ will continue to follow.
--- NOTE | 2020-02-14 12:10 | NUR ---
Union Organizer spoke with patient's , Ratna about patient. Ratna advised that she has a contractor coming to her home this week to talk about putting in a ramp. Rat[facility] to apply for cole funding for the ramp. LAZ will continue to follow.
--- NOTE | 2020-02-14 18:05 | NUR ---
Patient doing well this afternoon, has been up to recliner throughout the day. Spouse at bedside this afternon. States he feels better today than he did yesterday. Denies further needs at this time. Will report off to card puncher.
--- NOTE | 2020-02-14 20:42 | NUR ---
Clarified Amio dosing with soft BP. Per Dr. Parra give dose.
--- NOTE | 2020-02-14 20:50 | NUR ---
Resting in bed. Assessment complete. Lungs clear. Heart sounds normal. Bowels active x4. Pulses present throughout. Bilateral lower ext edema +3. PICC to right upper flushed without complications. Denies pain. Denies needs at this time. Call light in reach
--- NOTE | 2020-02-14 23:08 | NUR ---
Patient called for updates. Updated. No other questions at this time.
--- NOTE | 2020-02-14 23:41 | NUR ---
Resting in bed. Denies needs. call light in reach.
[2020-02-15] VITALS (7 sets, daily range): BP systolic 87–135; BP diastolic 39–86; PULSE 61–84; TEMP 97.5–98.1
--- NOTE | 2020-02-15 01:59 | NUR ---
Resting in bed asleep with CPAP on. Call light in reach.
--- NOTE | 2020-02-15 02:23 | NUR ---
Telemetry called stating patient in Afib RVR 140s while in restroom. Patient returned to bed. VS stable. Asymptomatic. Hilary DURBIN notified. Monitor at this time. No new orders.
--- NOTE | 2020-02-15 04:45 | NUR ---
Resting in bed. Denies needs. Call light in reach.
--- NOTE | 2020-02-15 06:12 | NUR ---
Patient had uneventful night. Resting in bed this AM. Call light in reach.
--- NOTE | 2020-02-15 06:43 | NUR ---
Report given to LOBO James
[2020-02-15 07:12] LABS: BASO % 0.3 % (0.0-2.0); EOS # 0.4 (0.0-0.7); EOS % 3.3 % (0-4.0); GRAN # 9.1 (1.4-6.5); GRAN % 73.8 % (42.2-75.2); LYMPH # 1.9 (1.2-3.4); LYMPH % 15.4 % (20.0-51.0); MEAN CELL VOLUME 100 fl (80.0-100.0); MEAN CORPUSCULAR HGB CONC 33 g/dl (33.0-37.0); MEAN PLATELET VOLUME 11.6 fl (7.4-10.4); MONO # 0.8 (0.1-0.6); MONO % 6.5 % (1.7-9.3); PLATELET COUNT 108 K/mm3 (130-400); RED BLOOD COUNT 2.71 M/mm3 (4.20-5.60); REDCELL DISTRIBUTION WIDTH-CV 15.4 % (11.5-14.5)
[2020-02-15 07:15] LABS: HEMATOCRIT 27.2 % (42.0-52.0); MEAN CORPUSCULAR HEMOGLOBIN 33 pg (27.0-31.0)
[2020-02-15 07:22] LABS: CALCIUM 8.5 mg/dL (8.4-10.2); CREATININE, serum 2.01 (0.66-1.25); POTASSIUM 4.2 mmol/L (3.4-5.0)
--- NOTE | 2020-02-15 07:34 | NUR ---
PT telemetry box 'battery low' no answer from nurse's phone or charge nurse. Will attempt again
--- NOTE | 2020-02-15 08:00 | NUR ---
Patient in bed resting. Alert and oriented x 3. Assessment complete. Edema to BLE appears better this AM, patient states his legs are looking better today. SCDS to BLE. PICC line to TANYA without complications. Denies pain or further needs at this time.
--- NOTE | 2020-02-15 08:31 | NUR ---
Erika RN notified of PTs low telemetry battery
--- NOTE | 2020-02-15 08:57 | NUR ---
Patient up to restroom with physical therapy.
--- NOTE | 2020-02-15 10:20 | NUR ---
Patient sitting up in recliner, denies needs at this time
--- NOTE | 2020-02-15 10:27 | NUR ---
Patient back to bed with x [address] Garcia in to see patient.
--- NOTE | 2020-02-15 11:42 | NUR ---
Patient up to restroom with x 1 assist, denies pain or further needs at this time.
--- NOTE | 2020-02-15 15:48 | NUR ---
Patient in bed resting, repositioned at this time. Denies further needs.
--- NOTE | 2020-02-15 18:07 | NUR ---
Patient has done well throughout the day, repositioned throughout the day. Encouraged patient to increase activity. Denies pain. SCDs maintined to BLE when in bed. Patient has been up to recliner for meals. Napping intermittently today. Bed bath provided this afternoon. Denies further needs at this time.
--- NOTE | 2020-02-15 21:00 | NUR ---
Pt currently lying in bed pt was assisted to the restroom. Pt did call to check to see how he was doing. Pt did have a small red area on his bottom so a dressing was applied at this time. Pt jass wraps were taken off his legs at this time and the SCD's were applied at this time. Pt has his call light within reach and his bed is in lowest position.
[2020-02-16] VITALS (7 sets, daily range): BP systolic 90–124; BP diastolic 33–89; PULSE 59–78; TEMP 97.6–98.3
--- NOTE | 2020-02-16 06:26 | NUR ---
Pt currently resting in bed. Pt has been encourged to turn while in bed to prevent pressure on his bottom. Pt has ambulated to the restroom a couple of times during the night. pt has his call light within reach.
--- NOTE | 2020-02-16 14:00 | NUR ---
Assessment completed, alert/oriented, vital signs stable, denies pain, heart reg/ paced on tele, short runs of V-tach continued and I have notified hospitalist/ said not changes medically unless arrythmia is sustained, patient is up with assist, denies other needs
--- NOTE | 2020-02-16 20:50 | NUR ---
PT RESTING IN BED. AWAKENED FOR HS MEDS AND ASSESSMENT. DENIES COMPLAINTS. RT PICC FLUSHED WELL. RT HERE TO PLACE CPAP ON FOR HS. IS ALERT AND ORIENTED X4.
[2020-02-17 04:13] VITALS: BP 115/93; PULSE 64; TEMP 98.5
[2020-02-17 06:46] LABS: BASO # 0.1 (0.0-0.2); BASO % 0.4 % (0.0-2.0); EOS # 0.3 (0.0-0.7); EOS % 2.5 % (0-4.0); GRAN # 10.1 (1.4-6.5); GRAN % 77.4 % (42.2-75.2); LYMPH # 1.6 (1.2-3.4); LYMPH % 12.2 % (20.0-51.0); MEAN CELL VOLUME 102 fl (80.0-100.0); MEAN CORPUSCULAR HGB CONC 33 g/dl (33.0-37.0); MEAN PLATELET VOLUME 11.3 fl (7.4-10.4); MONO # 0.9 (0.1-0.6); MONO % 6.7 % (1.7-9.3); PLATELET COUNT 116 K/mm3 (130-400); REDCELL DISTRIBUTION WIDTH-CV 15.5 % (11.5-14.5)
[2020-02-17 06:49] LABS: HEMATOCRIT 27.5 % (42.0-52.0); MEAN CORPUSCULAR HEMOGLOBIN 33 pg (27.0-31.0)
[2020-02-17 06:57] LABS: CREATININE, serum 1.97 (0.66-1.25); POTASSIUM 4.2 mmol/L (3.4-5.0)
[2020-02-17 07:31] VITALS: BP 84/48; PULSE 64; TEMP 98.3
--- NOTE | 2020-02-17 10:00 | NUR ---
Patient alert and oriented, answers questions appropriately. See assessment. No c/o at this time.
[2020-02-17 11:58] VITALS: BP 108/43; PULSE 68; TEMP 98.1
[2020-02-17 15:59] VITALS: BP 105/29; PULSE 71; TEMP 98.3
--- NOTE | 2020-02-17 20:00 | NUR ---
Report received, assumed care for film processing shift supervisor. Assessment complete. A&Ox3. VS stable. Denies pain/nausea/shortness of breath/dizziness. Assisted up to batroom to have stool. Noted to pass a quarter size clot as well as some bright red blood in the toilet. Loose brown BM. States this is the second time today this has happened. Noted to have +2 edema to bilat lower ext as well as +1 to bilat upper ext. Denies current needs. Call light in reach. Will monitor.
[2020-02-17 20:06] VITALS: BP 111/43; PULSE 65; TEMP 98.3
[2020-02-18] VITALS (49 sets, daily range): BP systolic 89–126; BP diastolic 40–101; PULSE 61–75; TEMP 97.5–98.5; O2SAT 94–100
--- NOTE | 2020-02-18 01:50 | NUR ---
Assisted up to bathroom at this time. Noted to have more blood in the stool this than before. States he had an episode earlier on day shift as well but not as much. Notified RAMAKRISHNA Richard.
[2020-02-18 07:10] LABS: BASO % 0.3 % (0.0-2.0); EOS # 0.3 (0.0-0.7); EOS % 1.8 % (0-4.0); GRAN # 10.7 (1.4-6.5); GRAN % 78.3 % (42.2-75.2); LYMPH # 1.7 (1.2-3.4); LYMPH % 12.2 % (20.0-51.0); MEAN CELL VOLUME 102 fl (80.0-100.0); MEAN CORPUSCULAR HGB CONC 33 g/dl (33.0-37.0); MEAN PLATELET VOLUME 12.1 fl (7.4-10.4); MONO # 0.9 (0.1-0.6); MONO % 6.6 % (1.7-9.3); PLATELET COUNT 129 K/mm3 (130-400); RED BLOOD COUNT 2.67 M/mm3 (4.20-5.60); REDCELL DISTRIBUTION WIDTH-CV 15.5 % (11.5-14.5)
[2020-02-18 07:13] LABS: HEMATOCRIT 27.2 % (42.0-52.0); MEAN CORPUSCULAR HEMOGLOBIN 34 pg (27.0-31.0)
--- NOTE | 2020-02-18 07:21 | NUR ---
Dr. Stanford in to see patient.
[2020-02-18 07:25] LABS: CREATININE, serum 1.99 (0.66-1.25); POTASSIUM 4.2 mmol/L (3.4-5.0)
--- NOTE | 2020-02-18 08:30 | NUR ---
Patient in bed resting. Alert and oriented x 3. Assessment complete. Edema to BLE +2. SCDS to BLE. PICC line to TANYA without complications. Denies pain or further needs at this time.
--- NOTE | 2020-02-18 12:54 | NUR ---
Spouse at bedside, denies needs at this time .
--- NOTE | 2020-02-18 15:45 | NUR ---
Dr. Seaman in to see patient.
[2020-02-18 16:45] LABS: HEMOGLOBIN 8.5 g/dl (13.5-18.0)
--- NOTE | 2020-02-18 17:02 | NUR ---
Automobile Racer attended clinical rounds with the team. Hospitalist advised if [facility] could not accept patient, his recommendation would be to explore a referral to [facility]. LAZ spoke with patient and patient's Ratna who were unsure if they would want to discharge to [facility], but were agreeable to referral being sent. LAZ contacted Refugio, Clinical Liason then faxed referral. LAZ will continue to follow.
[2020-02-18 18:21] LABS: BASO # 0.1 (0.0-0.2); BASO % 0.4 % (0.0-2.0); EOS # 0.5 (0.0-0.7); EOS % 2.9 % (0-4.0); GRAN # 11.3 (1.4-6.5); LYMPH # 3.2 (1.2-3.4); LYMPH % 19.5 % (20.0-51.0); MEAN CELL VOLUME 103 fl (80.0-100.0); MEAN CORPUSCULAR HGB CONC 32 g/dl (33.0-37.0); MEAN PLATELET VOLUME 11.2 fl (7.4-10.4); MONO # 1.1 (0.1-0.6); MONO % 6.8 % (1.7-9.3); PLATELET COUNT 134 K/mm3 (130-400); RED BLOOD COUNT 2.68 M/mm3 (4.20-5.60); REDCELL DISTRIBUTION WIDTH-CV 15.7 % (11.5-14.5)
[2020-02-18 18:22] LABS: HEMATOCRIT 27.5 % (42.0-52.0); HEMOGLOBIN 8.9 g/dl (13.5-18.0); MEAN CORPUSCULAR HEMOGLOBIN 33 pg (27.0-31.0)
[2020-02-18 18:33] LABS: ALBUMIN 2.4 gm/dL (3.5-5.0); BILIRUBIN,TOTAL 1.9 mg/dL (0.0-1.0); CALCIUM 8.9 mg/dL (8.4-10.2); CREATININE, serum 2.13 (0.66-1.25); MAGNESIUM 1.8 mg/dL (1.6-2.3); POTASSIUM 4.2 mmol/L (3.4-5.0); TOTAL PROTEIN 5.2 gm/dL (6.4-8.2)
--- NOTE | 2020-02-18 18:33 | NUR ---
Notified Dr. Seaman, patient having runs of Vtach, then tele notified that patient was staying in [facility]. Assited patient back to bed, VS at 97/36, pulse 65, O2 at 96% on 3L via NC. Contacted Dr. Seaman, order for Stat EKG placed and RT notified. Hilary BURTON arrived in room, Crashcart brought into room, pads placed on patient; EKG leads on patient. Stat labs drawn. Patient states he does not feel short of breath and does not feel palpitations. Will continue to monitor.
[2020-02-18 18:46] LABS: TROPONIN-I 0.04 ng/mL (0.000-0.035)
--- NOTE | 2020-02-18 19:00 | NUR ---
Notified Hilary BURTON of increased Troponin, Reported off to tar pot worker.
--- NOTE | 2020-02-18 19:28 | NUR ---
Pt. laying in bed at this time. Pt. is A&OX3, assessment complete. PICC to rt. upper arm patent. Pt. is currently attached to the crash cart to continually monitor. Heart rate noted on Crash cart in the 20's. Auscaltated heart rate at 65. RAMAKRISHNA Richard notified. Orders for EKG and plan to transfer to ICU. Will continue to monitor.
--- NOTE | 2020-02-18 21:10 | NUR ---
Gave report to LOBO Kendrick. Will transfer to ICU 2 when room is ready.
--- NOTE | 2020-02-18 22:15 | NUR ---
Pt arrived to ICU 2 from surgical. Pt alert and oriented x4. VSS. PICC to RUE CDI. Skin assessment completed. Excoriation noted to bilateral buttocks. Small open ulcer to left buttock; mepilex applied. Pt oriented to room and call light. Pt denies any needs/concerns at this time. Call light within reach.
[2020-02-19] VITALS (386 sets, daily range): BP systolic 96–126; BP diastolic 51–85; PULSE 66–90; TEMP 97–98.2; O2SAT 83–100
[2020-02-19 05:11] LABS: BASO % 0.3 % (0.0-2.0); EOS # 0.4 (0.0-0.7); EOS % 2.5 % (0-4.0); GRAN # 10.8 (1.4-6.5); GRAN % 76.1 % (42.2-75.2); MEAN CELL VOLUME 101 fl (80.0-100.0); MEAN CORPUSCULAR HGB CONC 33 g/dl (33.0-37.0); MONO # 0.9 (0.1-0.6); MONO % 6.6 % (1.7-9.3); PLATELET COUNT 121 K/mm3 (130-400); REDCELL DISTRIBUTION WIDTH-CV 15.5 % (11.5-14.5)
[2020-02-19 05:14] LABS: HEMATOCRIT 25.3 % (42.0-52.0); HEMOGLOBIN 8.4 g/dl (13.5-18.0); MEAN CORPUSCULAR HEMOGLOBIN 34 pg (27.0-31.0)
[2020-02-19 05:20] LABS: CALCIUM 8.5 mg/dL (8.4-10.2); CREATININE, serum 2.04 (0.66-1.25); POTASSIUM 4.3 mmol/L (3.4-5.0)
--- NOTE | 2020-02-19 06:24 | NUR ---
Pt rested intermittently overnight on his cpap. Pt has denied pain. Pt two assist with walker and gait belt earlier in the morning to toilet where he had soft brown stool with a bright red streak of blood. PICC to RUE CDI. Pt denies any needs/ concerns at this time. Call light within reach. Bed alarm on. Will report to dayshift who will resume cares.
--- NOTE | 2020-02-19 07:34 | NUR ---
Report given to LOBO Saravia
--- NOTE | 2020-02-19 08:20 | NUR ---
PICC intact right upper arm with sterile dressing change done with insertion site cleansed with chloraprep x 1, chlorhexidine impregnated disk applied, ski prep, stat lock, and tegaderm applied. no signs or symptoms of IV complications noted. no concerns voiced. re-wrapped with jass to protect catheter.
--- NOTE | 2020-02-19 10:09 | NUR ---
Follow-up visit; Tu thanked Pest Controller for looking in on him again and offering prayer and God's blessings.
--- NOTE | 2020-02-19 10:37 | NUR ---
Co Founder And Ceo attended clinical rounds with the team. SW to fax updates to Refugio with [facility].
--- NOTE | 2020-02-19 15:49 | NUR ---
Clinical Investigator faxed updates to Refugio.
[2020-02-20] VITALS (262 sets, daily range): BP systolic 92–110; BP diastolic 52–62; PULSE 62–77; TEMP 97.4–98.3; O2SAT 83–100
--- NOTE | 2020-02-20 03:45 | NUR ---
At this time this nurse was assisted pt from the toilet back to his bed. Pt was using his walker, with gait belt, and no slip socks in place. Pt made it to his bed, turning into his bed, and stated that he could not make that his right knee was "giving out". Pt half onto bed at this time on right side, pt is unable to repostion all the way into bed, pt lowered to knees, perpindicular to bed. This nurse called for help at this time. Pt then assisted to right side with pillow under his head with the help of two staff memebers. VS: BP96/62 HR70 98% 3L/NC. Pt denies any pain or discomfort. Pt assisted to bed with no lift. Nursing camp maintenance supervisor aware. 0415: Pt resting in bed with no further complaints at this time.
[2020-02-20 05:29] LABS: BASO % 0.2 % (0.0-2.0); EOS # 0.4 (0.0-0.7); EOS % 2.5 % (0-4.0); GRAN # 11.3 (1.4-6.5); GRAN % 79.5 % (42.2-75.2); LYMPH # 1.5 (1.2-3.4); LYMPH % 10.4 % (20.0-51.0); MEAN CELL VOLUME 101 fl (80.0-100.0); MEAN CORPUSCULAR HGB CONC 33 g/dl (33.0-37.0); MEAN PLATELET VOLUME 10.9 fl (7.4-10.4); MONO % 6.8 % (1.7-9.3); PLATELET COUNT 131 K/mm3 (130-400); RED BLOOD COUNT 2.51 M/mm3 (4.20-5.60); REDCELL DISTRIBUTION WIDTH-CV 15.3 % (11.5-14.5)
[2020-02-20 05:31] LABS: HEMATOCRIT 25.3 % (42.0-52.0); HEMOGLOBIN 8.3 g/dl (13.5-18.0); MEAN CORPUSCULAR HEMOGLOBIN 33 pg (27.0-31.0)
[2020-02-20 05:41] LABS: CALCIUM 8.5 mg/dL (8.4-10.2); CREATININE, serum 2.35 (0.66-1.25); POTASSIUM 4.4 mmol/L (3.4-5.0)
[2020-02-20 06:05] LABS: ALBUMIN 2.4 gm/dL (3.5-5.0); CALCIUM 8.5 mg/dL (8.4-10.2); CREATININE, serum 2.35 (0.66-1.25); MAGNESIUM 1.7 mg/dL (1.6-2.3); POTASSIUM 4.4 mmol/L (3.4-5.0); TOTAL PROTEIN 5.1 gm/dL (6.4-8.2)
--- NOTE | 2020-02-20 08:53 | NUR ---
Legislative Correspondent met with the patient's , Ratna to discuss the discharge plan. She would like Refugio from [facility] to contact her. She states she would like the [facility] to be the first choice. SW contacted Refugio, left message. The patient requested that food processing chemist contact her regarding a patient update. LAZ collaborated the above information with the patient's nurse.
--- NOTE | 2020-02-20 09:43 | NUR ---
Refugio with [facility] contacted this Instant Print Operator. He reports he has discharges coming up and there should be beds available. LAZ informed Refugio that the patient's would like to be contacted. Refugio states he will contact her this day. LAZ collaborated the above information with the patient's nurse.
--- NOTE | 2020-02-20 10:26 | NUR ---
Avionics Systems Repairer attended clinical rounds with the team. The patient has orders to transfer to the floor.
--- NOTE | 2020-02-20 14:21 | NUR ---
Processing Mgr faxed updates to Refugio with [facility].
--- NOTE | 2020-02-20 20:45 | NUR ---
Notified Hilary of patient's soft pressures 80s/40s. Verified with manual pressure. Received orders to notify if systolic is consistently below 90. Will continue to monitor.
[2020-02-21] VITALS (43 sets, daily range): BP systolic 89–127; BP diastolic 46–74; PULSE 63–77; TEMP 97.4–97.9; O2SAT 93–100
[2020-02-21 04:20] LABS: BASO % 0.2 % (0.0-2.0); EOS # 0.4 (0.0-0.7); EOS % 2.4 % (0-4.0); GRAN # 12.2 (1.4-6.5); GRAN % 76.2 % (42.2-75.2); LYMPH # 2.2 (1.2-3.4); LYMPH % 13.9 % (20.0-51.0); MEAN CELL VOLUME 103 fl (80.0-100.0); MEAN CORPUSCULAR HGB CONC 34 g/dl (33.0-37.0); MONO # 1.1 (0.1-0.6); MONO % 6.6 % (1.7-9.3); PLATELET COUNT 137 K/mm3 (130-400); RED BLOOD COUNT 2.42 M/mm3 (4.20-5.60); REDCELL DISTRIBUTION WIDTH-CV 15.4 % (11.5-14.5)
[2020-02-21 04:23] LABS: HEMATOCRIT 24.8 % (42.0-52.0); HEMOGLOBIN 8.3 g/dl (13.5-18.0); MEAN CORPUSCULAR HEMOGLOBIN 34 pg (27.0-31.0)
[2020-02-21 04:36] LABS: CALCIUM 8.4 mg/dL (8.4-10.2); CREATININE, serum 2.73 (0.66-1.25); POTASSIUM 4.6 mmol/L (3.4-5.0)
--- NOTE | 2020-02-21 09:06 | NUR ---
Bowling Ball Assembler faxed updates to Refugio with [facility].
--- NOTE | 2020-02-21 09:07 | NUR ---
Skip Tender attended clinical rounds with the team. The patient's was present. LAZ contacted Refugio to inform him of the updates. Refugio reports that his team should know sometime this morning on bed availabilty for this day. LAZ collaborated the above information with the patient's nurse.
--- NOTE | 2020-02-21 13:59 | NUR ---
Refugio from [facility] report they can take the patient this day. The patient is to discharge today, 02/20 to [facility] in [place] room [address] Dr[address] Kaye is accepting. [facility] will transport the patient at 1500. The patient, patient's , and team were in agreeance. SW faxed discharge orders. There are no additional needs at this time.
--- NOTE | 2020-02-21 15:12 | NUR ---
Patient discharged with [facility]. All belongings sent with. Report called at this time.
== END 2020-02-21 15:12 | disposition short-term general hospital (02) | DRG 308 ==
LOC: SURG 11:24 → ICU 02-18 22:10
PROVIDERS: Hospitalist; Nurse Practitioner Family; Physician Assistant; ADMIT Internal Medicine
DX: I47.2 Ventricular tachycardia (principal); K57.31 Diverticulosis of large intestine without perforation or abscess with bleeding; I50.23 Acute on chronic systolic (congestive) heart failure; I42.0 Dilated cardiomyopathy; N17.9 Acute kidney failure, unspecified; I13.0 Hypertensive heart and chronic kidney disease with heart failure and stage 1 through stage 4 chronic kidney disease, or unspecified chronic kidney disease; J96.11 Chronic respiratory failure with hypoxia; Z68.42 Body mass index [BMI] 45.0-49.9, adult; D72.829 Elevated white blood cell count, unspecified; E87.6 Hypokalemia; D64.9 Anemia, unspecified; D69.6 Thrombocytopenia, unspecified; N40.0 Benign prostatic hyperplasia without lower urinary tract symptoms; G47.33 Obstructive sleep apnea (adult) (pediatric); E66.01 Morbid (severe) obesity due to excess calories; I48.0 Paroxysmal atrial fibrillation; R19.7 Diarrhea, unspecified; Z96.653 Presence of artificial knee joint, bilateral; N18.9 Chronic kidney disease, unspecified; I77.819 Aortic ectasia, unspecified site; Z79.01 Long term (current) use of anticoagulants; J84.10 Pulmonary fibrosis, unspecified; Z87.01 Personal history of pneumonia (recurrent); Z86.73 Personal history of transient ischemic attack (TIA), and cerebral infarction without residual deficits; Z90.13 Acquired absence of bilateral breasts and nipples; Z09 Encounter for follow-up examination after completed treatment for conditions other than malignant neoplasm; Z87.891 Personal history of nicotine dependence; Z86.711 Personal history of pulmonary embolism; Z85.3 Personal history of malignant neoplasm of breast; Z95.810 Presence of automatic (implantable) cardiac defibrillator
CPT/HCPCS: 99231-AI; 99232-AI; 99233-AI; 99239; P9016